=== PATIENT | female | born 1930 | race Caucasian/White ===

== ENCOUNTER 2019-08-05 08:46 | Inpatient (IN) ==
[2019-08-05 08:59] LABS: Appearance,Urine CLEAR (Clear); Bilirubin,Urine Negative (Negative); Blood, Urine Negative (Negative); Color,Urine YELLOW (Yellow); Glucose,Urine (UA) Negative (Negative); Ketones,Urine Negative (Negative); Leukocyte Esterase,Urine 1+ (Negative); Microscopic, Urine URINE MICROSCOPIC (MICROSCOPIC); Protein,Urine TRACE (Negative); Specific Gravity, Urine 1.015 (1.005-1.030); Urobilinogen,Urine 0.2 EU/dl (0.2)
--- NOTE | 2019-08-05 09:00 | Emergency Department Note ---
ED Disposition Clinical Impression: Delirium due to general medical condition, Acute kidney injury (nontraumatic), Hyperkalemia Altered mental status Qualifiers: Altered mental status type: transient alteration of awareness Qualified Code(s): R40.4 - Transient alteration of awareness Sepsis Qualifiers: Sepsis type: sepsis due to unspecified organism Sepsis acute organ dysfunction status: with acute organ dysfunction Severe sepsis acute organ dysfunction type: acute renal failure Acute renal failure type: unspecified Severe sepsis shock status: without septic shock Qualified Code(s): A41.9 - Sepsis, unspecified organism; R65.20 - Severe sepsis without septic shock; N17.9 - Acute kidney failure, unspecified Pneumonia of both lower lobes Qualifiers: Pneumonia type: due to unspecified organism Qualified Code(s): J18.9 - Pneumonia, unspecified organism Disposition: Admitted As Inpatient Condition on Discharge: Fair Instructions: DI for Altered Mental Status Additional Instructions: Patient was admitted to the floor for IV antibiotics and IV hydration. Referrals: Ehsan Hall MD [Primary Care Provider] - Time of Disposition: 10:53 - Critical Care Critical Care Time: Yes Attestation: On , the high probability of a clinically significant, sudden or life threatening deterioration of the following system(s) required my full and direct attention, intervention and personal management. The time I documented below is in addition to time spent performing reported procedures but includes the following listed in this critical care notation. Total Critical Care Time: 30 Vital system(s) involved:: Circulatory Failure, Metabolic Failure, Respiratory Failure, Renal Failure My critical care processes included: Assessment & monitoring of V/S, Initial and Re-exams, Data Review/Interpretation, Coordinating Care, Medication Orders and management, Documentation Medical Decision Making - Brannon Inquiry Pt receiving controlled substance: No Vital Signs: 08/05/19 08:47 08/05/19 08:53 08/05/19 09:47 Temperature 103.1 F H 99.8 F H Temperature Source Rectal Oral Pulse Rate [Left Radial] 137 H 107 H Respiratory Rate 24 24 Blood Pressure [Right Arm] 178/87 H 121/78 Blood Pressure Mean [Right Arm] 117 92 Blood Pressure Position [Right Arm] Sitting Sitting 02 Sat by Pulse Oximetry 90 L 96 95 Oxygen Delivery Method Room Air Nasal Cannula Nasal Cannula Oxygen Flow Rate (LPM) 2 2 - Lab Data Lab results reviewed: Yes: I reviewed the patient's lab results. Lab Results 08/05/19 08:48: Influenza Type A Ag Negative, Influenza Type B Ag Negative 08/05/19 08:49: WBC 15.3 H, RBC 2.89 L, Hgb 10.3 L, Hct 33.4 L, MCV 115.8 H, MCH 35.6 H, MCHC 30.8 L, RDW 14.1, Plt Count 209, MPV 9.1, Neut % (Auto) 78.0, Lymph % (Auto) 18.1, [place] % (Auto) 2.8, Eos % (Auto) 0.7, Baso % (Auto) 0.4, Neut # (Auto) 12.0 H, Lymph # (Auto) 2.8, [place] # (Auto) 0.4, Eos # (Auto) 0.1, Baso # (Auto) 0.1, Total Counted 100, Neutrophils % (Manual) 77 H, Band Neutrophils % 3.0, Lymphocytes % (Manual) 19, Monocytes % (Manual) 1 L, Platelet Estimate Normal, Poikilocytosis 1+, Anisocytosis 1+, Macrocytosis 1+, Acanthocytes (Spur) 1+ 08/05/19 08:49: Sodium 136, Potassium 6.0 H, Chloride 107, Carbon Dioxide 18 L, Anion Gap 17.0 H, BUN 56 H, Creatinine 4.10 H, Estimated Creat Clear 10, Estimated GFR 10 L*, Est GFR ( Amer) 12 L*, Glucose 105 H, Calcium 10.0, Total Bilirubin 0.4, AST 36, ALT 12, Alkaline Phosphatase 59, Total Protein 7.0, Albumin 3.8, Globulin 3.2, Albumin/Globulin Ratio 1.2 08/05/19 08:49: Lactate 1.1 08/05/19 08:55: Specimen Source Right radial, O2 % 2lpm nc, ABG pH 7.39, ABG pCO 2 27.9 L, ABG pO2 77.2 L, ABG HCO3 16.4 L, ABG Total CO2 17.3 L, ABG O2 Saturation 94, ABG Base Excess -8.6 L, Perfecto Test Acceptable 08/05/19 08:56: Urine Color Yellow, Urine Appearance Clear, Urine pH 6.0, Ur Specific [place] 1.015, Urine Protein Trace, Urine Glucose (UA) Negative, Urine Ketones Negative, Urine Blood Negative, Urine Nitrate Negative, Urine Bilirubin Negative, Urine Urobilinogen 0.2, Ur Leukocyte Esterase 1+ A, Urine RBC None, Urine WBC 20-50, Ur Squamous Epith Cells 5-10, Urine Bacteria 2+ 08/05/19 10:00: Sodium 137, Potassium 5.8 H, Chloride 109 H, Carbon Dioxide 18 L , Anion Gap 15.8 H, BUN 53 H, Creatinine 3.70 H, Estimated Creat Clear 12, Estimated GFR 12 L*, Est GFR ( Amer) 14 L*, Glucose 95, Calcium 9.0 Result diagrams: 08/05/19 08:49 08/05/19 10:00 Orders (Tests/Meds): ED MEDICATIONS Generic Name Dose Route Start Last Admin Trade Name Freq PRN Reason Stop Dose Admin Sodium Chloride 1,040 mls @ 999 mls/hr 08/05/19 10:15 Sod Chlor 0.9% 1000ml Bag IV 08/05/19 11:17 .Q1H3M PATIENCE Discontinued Medications Generic Name Dose Route Start Last Admin Trade Name Freq PRN Reason Stop Dose Admin Acetaminophen 650 mg 08/05/19 08:54 08/05/19 08:56 Acetaminophen 650mg Suppository RC 08/05/19 08:55 650 mg ONCE ONE Administration Sodium Chloride 1,000 mls @ 999 mls/hr 08/05/19 09:00 08/05/19 08:56 Sod Chlor 0.9% 1000ml Bag IV 08/05/19 10:00 999 mls/hr .Q1H1M PATIENCE Administration Ceftriaxone Sodium 1 gm/ 50 mls @ 100 mls/hr 08/05/19 09:53 08/05/19 10:04 Sodium Chloride IV 08/05/19 10:22 100 mls/hr ONCE STA Administration Protocol Ibuprofen 400 mg 08/05/19 08:57 Motrin 100mg/5ml Suspension PO 08/05/19 08:58 ONCE ONE ORDERS Category Date Time Status Blood Culture Stat Micro 08/05/19 08:56 Received Urine Culture Stat Micro 08/05/19 08:56 Received - Radiology Data #1 Image(s): Chest Image Reviewed: Yes I reviewed the patient's radiology image, Yes I have reviewed radiologist's interpretation Bilateral lower lung infiltrate suggestive of possible pneumonia. FINDINGS: Normal heart size Surgical clips are present in the right perihilar region. There is consolidation present in both lower lobes right more extensive than left. There are surgical clips in the right axilla. There is an old left 5th rib fracture. IMPRESSION: Bilateral lower lobe pneumonia Dictated by: Perfecto Monaco MD 08/05/2019 10:12 Electronically signed by Perfecto Monaco MD in [place] 08/05/2019 10:12 - CT Data CT Scan: Abdomen Time Received: 10:[address] Reviewed: Yes: I have reviewed the patient's CT results Findings Narrative: CT of the abdomen pelvis FINDINGS: LOWER THORAX: There is pneumonia present in the right lower lobe and in the left lung base. There is dense coronary artery calcification ABDOMEN & PELVIS: The liver, spleen, gallbladder, pancreas, adrenal glands, and kidneys have an unremarkable appearance. There is a small duodenal diverticulum. No intestinal obstruction or free air. Unremarkable appendix. Sigmoid diverticulosis without diverticulitis. Vela catheter is present. Nonspecific bowel gas pattern. There are few fluid-filled loops of small bowel which are nonspecific and nondilated. Hyperdensity is present within the appendix and could be related to recent in gesture in of medication or contrast. Cannot exclude the possibility of an appendicoliths. There is no evidence of appendicitis. There are degenerative changes in the lumbar spine. There is 50 percent anterior wedge compression change of L1 which appears old. IMPRESSION: 1. Bilateral lower lobe pneumonia right more extensive than left. 2. Nonspecific bowel gas pattern with nondistended scattered fluid-filled loops of small bowel which could be seen with enteritis. Dictated by: Perfecto Monaco MD 08/05/2019 10:11 Electronically signed by Perfecto Monaco MD in [place] 08/05/2019 10:11 CT of the head reports: FINDINGS: No midline shift, mass effect, intracranial hemorr There is generalized atrophy with hypoattenuation of the periventricular white matter consistent with microangiopathic changes.. There are encephalomalacia changes in the left cerebellar hemisphere laterally anny, hydrocephalus, or extra-axial fluid collection is evident. The calvarium has an unremarkable appearance. No mastoid effusion. There is moderate mucosal thickening of the maxillary sinuses with an air-fluid level in the right maxillary sinus. Near complete opacified sphenoid sinus on the right with an air-fluid level. Ethmoid sinus mucosal thickening also noted. IMPRESSION: 1. No acute intracranial findings. 2. Sinusitis Dictated by: Perfecto Monaco MD 08/05/2019 10:05 Electronically signed by Perfecto Monaco MD in [place] 08/05/2019 10:05 - ECG Data Tracing #1 EKG shows sinus tachycardia with a heart rate of 105 bpm, normal P waves, normal MN interval, incomplete LBBB pattern with boderline wide QRS complex, normal axis, nonspecific ST-T changes. - Physician Consults Physician Consulted: Dr. Baron Time: 10:40 Reason -: Admission Comment/Response: Discussed with Dr. Baron, regarding the patient and planned to get the patient admitted to the floor. - Reevaluation(s) Time: 10:30 Reevaluation #1: Patient has been [facility] I discussed the lab findings and the x-ray findings with the daughter. Advised her that the patient seems to have pneumonia along with acute kidney injury. The patient needs to be admitted to the hospital. The daughter states that the patient is DNR in CODE STATUS. She would prefer if the patient would stay in our hospital. Plan to discuss the case with the primary care provider regarding admission to our hospital. Altered Mental Status HPI - General Chief Complaint: Altered Mental Status Stated Complaint: AMS Time Seen by Provider: 08/05/19 08:47 Mode of Arrival: EMS Limitations: No Limitations Description of Symptoms (Recalled from ER Triage Doc. by RN): TO ED PER [facility] WITH URI X SEVERAL DAYS, THIS AM STARTED WITH CONFUSION AND MOANING. PT ALERT, DISORENTED TO TIME. - History of Present Illness HPI narrative: 89-year-old female was brought in by the EMS for being confused at home this morning. According to the daughter she was having some upper respiratory tract infection for almost a week or so. She had been to her primary care provider for the same. The symptoms were not changing much but she seemed to be more c onfused today. The daughter also mentions that at times she is confused when she wakes up in the morning but today she seemed to be worse than any other time. The daughter is not sure if she had a fever but she felt warm. No history of nausea or vomiting. FSBS by EMS= 127 MD complaint: altered mental status, confusion Timing confirmed by: family member Severity: moderate Associated symptoms: fever - Related Data Allergies Allergy/AdvReac Type Severity Reaction Status Date / Time No Known Allergies Allergy Verified 08/05/19 10:03 [facility] History - Hepatitis A Screen Drug use history?: No High risk sexual behaviors?: No History of sexually transmitted infection?: No Currently employed?: No Childcare worker?: No Do you have indoor plumbing?: Yes Do you have electricity?: Yes Attestation statement:: This patient has been screened for Hepatitis A risk factors. I have reviewed the patient's past medical history: Yes - Social History Alcohol Intake: never Occupational Status: other ROS Obtained: Yes unobtainable due to mental status, Yes unobtainable due to mental condition Physical Exam - General General appearance: alert, in no apparent distress, other (Confused. 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 Denies having any pain. High fever with temp 103.1 rectally.) - Head Head exam: atraumatic, normocephalic - Eye Eye exam: Present: normal appearance, PERRL, EOMI - ENT ENT exam: Present: normal exam, normal oropharynx, mucous membranes moist, normal external ear exam - Neck Neck exam: Present: normal inspection, full ROM, trachea midline - Chest Chest inspection: Present: normal inspection, symmetric chest wall rise. Absent: tenderness - Respiratory Respiratory exam: Present: other (decreased breath sounds bilaterally.). Absent: respiratory distress - Cardiovascular Cardiovascular exam: Present: normal rhythm, tachycardia. Absent: JVD - Abdominal Exam Abdominal exam: Present: soft, tenderness (mild tenderness on the lower abdomen and the periumbilical area.), normal bowel sounds. Absent: distention, guarding - Extremities Exam Extremities exam: Present: normal inspection, full ROM, normal capillary refill - Back Exam Back exam: Present: normal inspection, full ROM. Absent: tenderness - Neurological Exam Neurological exam: Present: alert, oriented X3, CN II-XII intact - Psychiatric Psychiatric exam: Present: normal affect, normal mood - Skin Skin exam: Present: warm, dry, intact, normal color
[2019-08-05 09:03] LABS: Basophils # 0.1 K/mm3 (0-0.2); Basophils % 0.4 % (0.1-2.0); Eosinophils # 0.1 K/mm3 (0.0-0.4); Eosinophils % 0.7 % (0.1-12.0); Hematocrit 33.4 % (37.0-47.0); Hemoglobin 10.3 g/dL (12.2-16.2); Lymphocytes # 2.8 K/mm3 (0.7-4.5); Lymphocytes % 18.1 % (10-50); Mean Corpuscular HGB Conc 30.8 g/dL (31.8-35.4); Mean Corpuscular Volume 115.8 fl (81-99); Mean Platelet Volume 9.1 fl (7.4-10.4); Monocytes # 0.4 K/mm3 (0.1-1.0); Monocytes % 2.8 % (1.7-9.3); Platelet Count 209 K/mm3 (142-424); Red Blood Count 2.89 M/mm3 (4.20-5.40); Red Cell Distribution Width 14.1 % (11.5-17.5); White Blood Count 15.3 K/mm3 (4.8-10.8)
[2019-08-05 09:12] LABS: Albumin Level 3.8 g/dl (3.5-5.0); Albumin/Globulin Ratio 1.2 (1.1-1.8); Bilirubin,Total 0.4 mg/dl (0.2-1.3); Globulin 3.2 g/dL (1.3-3.2)
[2019-08-05 09:16] LABS: Bacteria,Urine 2+ /lpf; WBC,Urine 20-50 #/hpf (0-3)
[2019-08-05 09:23] LABS: ABG Base Excess -8.6 mmol/L (-2.4-2.3); ABG HCO3 16.4 mmhg (22.0-26.0); ABG Oxygen Saturation 94 % (90-100); ABG PCO2 27.9 mmhg (35.0-45.0); ABG PH 7.39 mmol/L (7.35-7.45); ABG PO2 77.2 mmhg (80-100); ABG TCO2 17.3 mmhg (23-27)
[2019-08-05 09:24] LABS: Anisocytosis 1+; Lymphocytes % 19 % (10-50); Macrocytosis 1+; Monocytes % 1 % (2-9); Neutrophils % 77 % (42-76); Total Cells Counted 100
[2019-08-05 09:25] LABS: Allen's Test Acceptable; Oxygen 2lpm nc %
[2019-08-05 10:16] LABS: Anion Gap 15.8 mEq/L (5-15)
--- NOTE | 2019-08-05 12:58 | Pharmacy Consult Notes ---
[facility] Pharmacy VTE Monitoring - Patient Demographics Admission date: 08/05/19 Report Date: 08/05/19 Time: 12:57 Allergies/Adverse Reactions: Patient Allergies No Known Allergies Allergy (Verified 08/05/19 10:03) Height: 1.6 m Weight: 60.895 kg Patient Problems: Current Active Problems Altered mental status (Acute) Sepsis (Acute) Delirium due to general medical condition (Acute) Pneumonia of both lower lobes (Acute) Acute kidney injury (nontraumatic) (Acute) Hyperkalemia (Acute) - VTE Risk Labs: VTE Related Lab Results Hgb 10.3 g/dL (12.2-16.2) L 08/05/19 08:49 Hct 33.4 % (37.0-47.0) L 08/05/19 08:49 Plt Count 209 K/mm3 (142-424) 08/05/19 08:49 BUN 53 mg/dl (7-17) H 08/05/19 10:00 Creatinine 3.70 mg/dl (0.52-1.04) H 08/05/19 10:00 Estimated Creat Clear 12 mL/min (50-200) 08/05/19 10:00 VTE Score: 6 VTE Risk Level: Moderate Risk - Prophylaxis VTE Prophylaxis Ordered?: Yes Types of VTE Prophylaxis: TEDS Knee High Location of Applied Device: Bilateral Lower Extremeties
--- NOTE | 2019-08-05 14:57 | History & Physical Report ---
*Admission Date: 08/05/19 *Chief complaint: weakness *History of present illness: Ms. Monroe is an 89-year-old white female survivor of uterine cancer, lung cancer, and breast cancer. She has a history of type 2 diabetes mellitus, hypertension, hyperlipidemia. She has been seen in the office twice recently with respiratory symptoms and was initially treated with Omnicef followed by a course of Zithromax. Despite this she has persisted with congestion, cough, and progressive weakness. She has not been eating or drinking well at home. Because of her progressive symptoms she presented to the emergency room today. She was worked up with findings of bilateral lower lobe pneumonia, urinary tract infection, and acute on chronic renal failure with an elevated white count meeting criteria for severe sepsis. She received an IV fluid bolus along with the initial dose of IV antibiotics in the emergency room and has now been admitted for further evaluation and treatment. [facility] History Medical History: Reports:: Cancer (breast, lung, gynecological cancers), Diab etes Mellitus Type 2, Hypertension, Renal Insufficiency Denies:: Diabetes Mellitus Type 1 *Have you ever received a pneumonia vaccine?: Yes *Have you received a flu vaccine this season?: Yes Other Medical History: Reports: Arthritis, Cataracts Laterality Cases: Right: Breast Biopsy, Mastectomy Other Surgeries: Yes: Colonoscopy, EGD, Hysterectomy-Total, Skin Cancer Excision - *Social History Smoking Status: Never smoker Alcohol Intake: never *Occupational Status:: retired Housing: apartment Household Members: children *Travel in the last 8 weeks: None Family Hx:: Cancer, Diabetes, Other Review of Systems - Constitutional Reports malaise, Reports weakness, Reports other (Decreased appetite) - Eyes Denies change in vision - ENT Reports poor balance, Reports dry mouth, Reports other (Hearing loss) - *Cardiovascular Denies chest pain, Denies shortness of breath, Denies foot swelling - *Respiratory Reports chest congestion - *Gastrointestinal Denies abdominal pain, Denies constipation, Denies loose stools, Denies nausea, Denies vomiting - *Genitourinary Denies difficulty urinating - *Musculoskeletal Reports abnormal walking, Reports muscle weakness - Integumentary/Breasts Denies change in skin color, Denies sores - *Neurologic Reports abnormal hearing, Reports unsteadiness - Psychiatric Denies behavioral changes, Denies confusion - Endocrine Denies excessive sweating, Denies rapid, pounding, or irregular heartbeat - Hematologic/Lymphatic Denies easy bleeding Meds Home Medications Medication Instructions Recorded Confirmed Type Fenofibrate 160 mg PO DAILY 08/05/19 08/05/19 History Ferrous Sulfate 325 mg PO DAILY 08/05/19 08/05/19 History Gabapentin [Gabapentin 300mg Cap] 300 mg PO BID 08/05/19 08/05/19 History Losartan Potassium 100 mg PO DAILY 08/05/19 08/05/19 History Metformin HCl 500 mg PO BID 08/05/19 08/05/19 History Metoprolol Succinate 50 mg PO DAILY 08/05/19 08/05/19 History Mv-Min/Iron/Folic/Calcium/Vitk 1 each PO DAILY 08/05/19 08/05/19 History [Women's Multivitamin Tablet] Omeprazole 40 mg PO DAILY 08/05/19 08/05/19 History Pravastatin Sodium [Pravachol 40mg 40 mg PO HS 08/05/19 08/05/19 History Tablet] Triamterene/Hydrochlorothiazid 1 tab PO DAILY 08/05/19 08/05/19 History [Dyazide 37.5/25mg capsule] Vitamin B Complex [B-50 Complex] 1 each PO DAILY 08/05/19 08/05/19 History Allergies Allergy/AdvReac Type Severity Reaction Status Date / Time No Known Allergies Allergy Verified 08/05/19 10:03 Exam Vital signs and Labs for Last 24 Hours: Temp Pulse Resp BP Pulse Ox 97.6 F 96 H 18 129/53 L 96 08/05/19 12:19 08/05/19 12:19 08/05/19 12:19 08/05/19 12:19 08/05/19 12:19 Laboratory Results - last 24 hr 08/05/19 08:48: Influenza Type A Ag Negative, Influenza Type B Ag Negative 08/05/19 08:49: WBC 15.3 H, RBC 2.89 L, Hgb 10.3 L, Hct 33.4 L, MCV 115.8 H, MCH 35.6 H, MCHC 30.8 L, RDW 14.1, Plt Count 209, MPV 9.1, Neut % (Auto) 78.0, Lymph % (Auto) 18.1, [place] % (Auto) 2.8, Eos % (Auto) 0.7, Baso % (Auto) 0.4, Neut # (Auto) 12.0 H, Lymph # (Auto) 2.8, [place] # (Auto) 0.4, Eos # (Auto) 0.1, Baso # (Auto) 0.1, Total Counted 100, Neutrophils % (Manual) 77 H, Band Neutrophils % 3.0, Lymphocytes % (Manual) 19, Monocytes % (Manual) 1 L, Platelet Estimate Normal, Poikilocytosis 1+, Anisocytosis 1+, Macrocytosis 1+, Acanthocytes (Spur) 1+ 08/05/19 08:49: Sodium 136, Potassium 6.0 H, Chloride 107, Carbon Dioxide 18 L, Anion Gap 17.0 H, BUN 56 H, Creatinine 4.10 H, Estimated Creat Clear 10, Estimated GFR 10 L*, Est GFR ( Amer) 12 L*, Glucose 105 H, Calcium 10.0, Total Bilirubin 0.4, AST 36, ALT 12, Alkaline Phosphatase 59, Total Protein 7.0, Albumin 3.8, Globulin 3.2, Albumin/Globulin Ratio 1.2 08/05/19 08:49: Lactate 1.1 08/05/19 08:55: Specimen Source Right radial, O2 % 2lpm nc, ABG pH 7.39, ABG pCO2 27.9 L, ABG pO2 77.2 L, ABG HCO3 16.4 L, ABG Total CO2 17.3 L, ABG O2 Saturation 94, ABG Base Excess -8.6 L, Perfecto Test Acceptable 08/05/19 08:56: Urine Color Yellow, Urine Appearance Clear, Urine pH 6.0, Ur Specific [place] 1.015, Urine Protein Trace, Urine Glucose (UA) Negative, Urine Ketones Negative, Urine Blood Negative, Urine Nitrate Negative, Urine Bilirubin Negative, Urine Urobilinogen 0.2, Ur Leukocyte Esterase 1+ A, Urine RBC None, Urine WBC 20-50, Ur Squamous Epith Cells 5-10, Urine Bacteria 2+ 08/05/19 10:00: Sodium 137, Potassium 5.8 H, Chloride 109 H, Carbon Dioxide 18 L , Anion Gap 15.8 H, BUN 53 H, Creatinine 3.70 H, Estimated Creat Clear 12, Estimated GFR 12 L*, Est GFR ( Amer) 14 L*, Glucose 95, Calcium 9.0 08/05/19 12:09: POC Glucose 113 H I & O for Last 24 hours: Intake & Output 08/03/19 08/04/19 08/05/19 08/06/19 11:59 11:59 11:59 11:59 Output Total 650 / 650 Balance -650 / -650 Weight 134 lb 134 lb 4 oz Narrative: She is resting comfortably in bed and is aroused from sleep. She is quite hard of hearing. She is alert and oriented. Color is adequate. No respiratory dist ress. Sclera and conjunctive are clear. Mucous membranes are dry. Neck is supple with no adenopathy or bruits. Chest with coarse breath sounds and bibasilar rales. No wheezes. Heart is regular with a faint grade 1/6 systolic murmur. Abdomen is soft and nondistended. No unusual masses or tenderness. Extremities show no edema. KAITLYNN stockings in place. Assessment and Plan (1) Pneumonia of both lower lobes Current visit: Yes Status: Acute Qualifiers: Pneumonia type: due to unspecified organism Qualified Code(s): J18.9 - Pneumonia, unspecified organism Category: Medical Code(s): J18.9 - Pneumonia, unspecified organism (2) Severe sepsis Current visit: Yes Status: Acute Category: Medical Code(s): A41.9 - Sepsis, unspecified organism; R65.20 - Severe sepsis without septic shock (3) Urinary tract infection Current visit: Yes Status: Acute Category: Medical Code(s): N39.0 - Urinary tract infection, site not specified (4) Acute on chronic renal failure Current visit: Yes Status: Acute Category: Medical Code(s): N17.9 - Acute kidney failure, unspecified; N18.9 - Chronic kidney disease, unspecified (5) Type 2 diabetes mellitus Current visit: Yes Status: Acute Category: Medical Code(s): E11.9 - Type 2 diabetes mellitus without complications (6) Hypertension Current visit: Yes Status: Acute Category: Medical Code(s): I10 - Essential (primary) hypertension (7) Hyperlipidemia Current visit: Yes Status: Acute Category: Medical Code(s): E78.5 - Hyperlipidemia, unspecified (8) Presbycusis Current visit: Yes Status: Acute Category: Medical Code(s): H91.10 - Presbycusis, unspecified ear (9) History of uterine cancer Current visit: Yes Status: Acute Category: Medical Code(s): Z85.42 - Personal history of malignant neoplasm of other parts of uterus (10) History of lung cancer Current visit: Yes Status: Acute Category: Medical Code(s): Z85.118 - Personal history of other malignant neoplasm of bronchus and lung (11) History of breast cancer Current visit: Yes Status: Acute Category: Medical Code(s): Z85.3 - Personal history of malignant neoplasm of breast (12) Diabetic neuropathy Current visit: Yes Status: Acute Category: Medical Code(s): E11.40 - Type 2 diabetes mellitus with diabetic neuropathy, unspecified (13) DNR (do not resuscitate) Current visit: Yes Status: Acute Category: Medical Code(s): Z66 - Do not resuscitate - Assessment and plan all Dx Assessment and Plan for all problems:: She is admitted for treatment with IV fluids and IV antibiotics. She received her fluid bolus in the emergency room and has empirically been started on IV Rocephin and Zithromax. She will continue some of her maintenance medications but will hold her diuretics and metformin because of her acute renal insufficiency. She has been placed on a sliding scale insulin for control of her blood sugar. Note her DNR status.
[2019-08-05 16:19] LABS: Anion Gap 15.3 mEq/L (5-15); Calcium 8.1 mg/dl (8.4-10.2)
--- NOTE | 2019-08-05 19:09 | Electrocardiograph Report ---
APPROVED REPORT Exam: Resting ECG HR:105 bpm ECG Measurements Heart Rate 105 AXES OK 154 P 44 QRSd 108 QRS 10 QT 342 T27 QTc 452 <Conclusion> Sinus tachycardia Poor R Wave Progression Abnormal ECG Electronically signed by : Keven Pratt, 08/05/2019 19:08:47
[2019-08-06 07:07] LABS: Basophils # 0.1 K/mm3 (0-0.2); Basophils % 0.3 % (0.1-2.0); Eosinophils # 0.1 K/mm3 (0.0-0.4); Eosinophils % 0.6 % (0.1-12.0); Lymphocytes # 1.8 K/mm3 (0.7-4.5); Lymphocytes % 12.3 % (10-50); Mean Corpuscular HGB Conc 30.7 g/dL (31.8-35.4); Mean Corpuscular Volume 115.2 fl (81-99); Mean Platelet Volume 9.1 fl (7.4-10.4); Monocytes # 0.4 K/mm3 (0.1-1.0); Monocytes % 2.5 % (1.7-9.3); Neutrophils # 12.5 K/mm3 (1.8-7.8); Neutrophils % 84.2 % (37.0-80.0); Platelet Count 152 K/mm3 (142-424); Red Blood Count 2.33 M/mm3 (4.20-5.40); Red Cell Distribution Width 13.9 % (11.5-17.5); White Blood Count 14.8 K/mm3 (4.8-10.8)
[2019-08-06 07:15] LABS: Hematocrit 26.9 % (37.0-47.0); Hemoglobin 8.2 g/dL (12.2-16.2)
--- NOTE | 2019-08-06 09:14 | Progress Note ---
Internal Medicine - PN: Subj *Date: 08/06/19 *Time: 09:12 Interval history: Patient did have some shortness of breath overnight. She had a bowel movement this morning. Exam Vital signs and Labs for Last 24 Hours: Temp Pulse Resp BP Pulse Ox 98.1 F 73 18 135/48 L 93 L 08/06/19 08:00 08/06/19 08:00 08/06/19 08:00 08/06/19 08:00 08/06/19 08:00 Laboratory Results - last 24 hr 08/05/19 08:48: Influenza Type A Ag Negative, Influenza Type B Ag Negative 08/05/19 08:49: Total Counted 100, Neutrophils % (Manual) 77 H, Band Neutrophils % 3.0, Lymphocytes % (Manual) 19, Monocytes % (Manual) 1 L, Platelet Estimate Normal, Poikilocytosis 1+, Anisocytosis 1+, Macrocytosis 1+, Acanthocytes (Spur) 1+ 08/05/19 08:49: Sodium 136, Potassium 6.0 H, Chloride 107, Carbon Dioxide 18 L, Anion Gap 17.0 H, BUN 56 H, Creatinine 4.10 H, Estimated Creat Clear 10, Estimated GFR 10 L*, Est GFR ( Amer) 12 L*, Glucose 105 H, Calcium 10.0, Total Bilirubin 0.4, AST 36, ALT 12, Alkaline Phosphatase 59, Total Protein 7.0, Albumin 3.8, Globulin 3.2, Albumin/Globulin Ratio 1.2 08/05/19 08:49: Lactate 1.1 08/05/19 08:55: Specimen Source Right radial, O2 % 2lpm nc, ABG pH 7.39, ABG pCO2 27.9 L, ABG pO2 77.2 L, ABG HCO3 16.4 L, ABG Total CO2 17.3 L, ABG O2 Saturation 94, ABG Base Excess -8.6 L, Perfecto Test Acceptable 08/05/19 08:56: Urine Color Yellow, Urine Appearance Clear, Urine pH 6.0, Ur Specific [place] 1.015, Urine Protein Trace, Urine Glucose (UA) Negative, Urine Ketones Negative, Urine Blood Negative, Urine Nitrate Negative, Urine Bilirubin Negative, Urine Urobilinogen 0.2, Ur Leukocyte Esterase 1+ A, Urine RBC None, Urine WBC 20-50, Ur Squamous Epith Cells 5-10, Urine Bacteria 2+ 08/05/19 10:00: Sodium 137, Potassium 5.8 H, Chloride 109 H, Carbon Dioxide 18 L , Anion Gap 15.8 H, BUN 53 H, Creatinine 3.70 H, Estimated Creat Clear 12, Estimated GFR 12 L*, Est GFR ( Amer) 14 L*, Glucose 95, Calcium 9.0 08/05/19 12:09: POC Glucose 113 H 08/05/19 16:00: Sodium 137, Potassium 5.3 H, Chloride 112 H, Carbon Dioxide 15 L , Anion Gap 15.3 H, BUN 45 H, Creatinine 3.30 H, Estimated Creat Clear 12, Estimated GFR 13 L*, Est GFR ( Amer) 16 L*, Glucose 137 H D, Calcium 8.1 L 08/05/19 16:59: POC Glucose 144 H 08/05/19 23:11: POC Glucose 141 H 08/06/19 04:32: POC Glucose 139 H 08/06/19 06:39: WBC 14.8 H, RBC 2.33 L, Hgb 8.2 L D, Hct 26.9 L, MCV 115.2 H, MCH 35.4 H, MCHC 30.7 L, RDW 13.9, Plt Count 152 D, MPV 9.1, Neut % (Auto) 84.2 H, Lymph % (Auto) 12.3, [place] % (Auto) 2.5, Eos % (Auto) 0.6, Baso % (Auto) 0.3, Neut # (Auto) 12.5 H, Lymph # (Auto) 1.8, [place] # (Auto) 0.4, Eos # (Auto) 0.1, Baso # (Auto) 0.1 Vital Signs - 24 hr 08/05/19 09:47 08/05/19 10:48 08/05/19 11:27 Temperature 99.8 F H 99 F Pulse Rate 98 H Pulse Rate [Left Radial] 107 H 102 H Respiratory Rate 24 20 Blood Pressure 125/74 Blood Pressure [Left Arm] Blood Pressure [Right Arm] 121/78 136/73 02 Sat by Pulse Oximetry 95 94 L 08/05/19 12:19 08/05/19 15:54 08/05/19 19:53 Temperature 97.6 F 98.4 F 97.8 F Pulse Rate Pulse Rate [Left Radial] 96 H 80 70 Respiratory Rate 18 18 18 Blood Pressure Blood Pressure [Left Arm] 140/53 L Blood Pressure [Right Arm] 129/53 L 125/54 L 02 Sat by Pulse Oximetry 96 95 97 08/06/19 00:00 08/06/19 04:00 08/06/19 04:15 Temperature 98.1 F 97.7 F Pulse Rate Pulse Rate [Left Radial] 68 66 Respiratory Rate 20 16 Blood Pressure Blood Pressure [Left Arm] 130/46 L 143/53 H Blood Pressure [Right Arm] 02 Sat by Pulse Oximetry 98 100 89 L 08/06/19 08:00 Temperature 98.1 F Pulse Rate Pulse Rate [Left Radial] 73 Respiratory Rate 18 Blood Pressure Blood Pressure [Left Arm] 135/48 L Blood Pressure [Right Arm] 02 Sat by Pulse Oximetry 93 L I & O for Last 24 hours: Intake & Output 08/03/19 08/04/19 08/05/19 08/06/19 23:59 23:59 23:59 23:59 Intake Total 707 / 707 1536 / 1536 Output Total 1250 / 1250 625 / 625 Balance -543 / -543 911 / 911 Weight 134 lb 4 oz 136 lb 7 oz Microbiology Reports for the Last 24 Hours: Microbiology 08/05/19 08:56 Urine,Catheterized Urine Culture - Preliminary Gram Negative Rods - Constitutional no acute distress - *Routine HEENT Exam Head: Present: normocephalic Eye: Present: EOMI, PERRL ENT: Present: mucous membranes moist - *Routine Neck Exam Present: supple. Absent: lymphadenopathy - *Routine Respiratory Exam Present: crackles (bibasilar) - *Routine Cardiovascular Exam Present: RRR - *Routine Abdominal Exam Present: soft, normoactive bowel sounds. Absent: tenderness - *Routine Extremities Exam Absent: cyanosis, clubbing, edema - *Routine Skin Exam Present: warm. Absent: rash - *Routine Neurological Exam Present: alert Assessment and Plan (1) Pneumonia of both lower lobes Current visit: Yes Status: Acute Qualifiers: Pneumonia type: due to unspecified organism Qualified Code(s): J18.9 - Pneumonia, unspecified organism Category: Medical Code(s): J18.9 - Pneumonia, unspecified organism (2) Severe sepsis Current visit: Yes Status: Acute Category: Medical Code(s): A41.9 - Sepsis, unspecified organism; R65.20 - Severe sepsis without septic shock (3) Urinary tract infection Current visit: Yes Status: Acute Category: Medical Code(s): N39.0 - Urinary tract infection, site not specified (4) Acute on chronic renal failure Current visit: Yes Status: Acute Category: Medical Code(s): N17.9 - Acute kidney failure, unspecified; N18.9 - Chronic kidney disease, unspecified (5) Type 2 diabetes mellitus Current visit: Yes Status: Acute Category: Medical Code(s): E11.9 - Type 2 diabetes mellitus without complications (6) Hypertension Current visit: Yes Status: Acute Category: Medical Code(s): I10 - Essential (primary) hypertension (7) Hyperlipidemia Current visit: Yes Status: Acute Category: Medical Code(s): E78.5 - Hyperlipidemia, unspecified (8) Presbycusis Current visit: Yes Status: Acute Category: Medical Code(s): H91.10 - Presbycusis, unspecified ear (9) History of uterine cancer Current visit: Yes Status: Acute Category: Medical Code(s): Z85.42 - Personal history of malignant neoplasm of other parts of uterus (10) History of lung cancer Current visit: Yes Status: Acute Category: Medical Code(s): Z85.118 - Personal history of other malignant neoplasm of bronchus and lung (11) History of breast cancer Current visit: Yes Status: Acute Category: Medical Code(s): Z85.3 - Personal history of malignant neoplasm of breast (12) Diabetic neuropathy Current visit: Yes Status: Acute Category: Medical Code(s): E11.40 - Type 2 diabetes mellitus with diabetic neuropathy, unspecified (13) DNR (do not resuscitate) Current visit: Yes Status: Acute Category: Medical Code(s): Z66 - Do not resuscitate - Assessment and plan all Dx Assessment and Plan for all problems:: Continue current antibiotics, await cultures.
[2019-08-07 06:24] LABS: Basophils # 0.1 K/mm3 (0-0.2); Basophils % 0.6 % (0.1-2.0); Eosinophils # 0.2 K/mm3 (0.0-0.4); Eosinophils % 1.5 % (0.1-12.0); Hematocrit 27.7 % (37.0-47.0); Hemoglobin 8.5 g/dL (12.2-16.2); Lymphocytes # 2.6 K/mm3 (0.7-4.5); Lymphocytes % 18.6 % (10-50); Mean Corpuscular HGB Conc 30.7 g/dL (31.8-35.4); Mean Corpuscular Volume 115.4 fl (81-99); Mean Platelet Volume 8.8 fl (7.4-10.4); Monocytes # 0.5 K/mm3 (0.1-1.0); Monocytes % 3.2 % (1.7-9.3); Neutrophils # 10.6 K/mm3 (1.8-7.8); Platelet Count 146 K/mm3 (142-424); Red Cell Distribution Width 13.9 % (11.5-17.5)
[2019-08-07 06:30] LABS: Anion Gap 14.2 mEq/L (5-15)
--- NOTE | 2019-08-07 08:23 | Progress Note ---
<Jaz Sams - Last Filed: 08/07/19 08:19> Internal Medicine - PN: Subj *Date: 08/07/19 *Time: 08:19 Interval history: Patient states she did sleep last night. She remains very tired, weak, and short of breath with any exertion. She denies chest pain. She has been out of bed and sitting in a chair. She is not eating very well. Her bowels did move yesterday. BMP shows sodium of 140 and potassium of 5.2, BUN 35 creatinine of 2.7 white blood cell count was 14,000 this morning with a hemoglobin of 8.5 hematocrit of 27.7 Exam Vital signs and Labs for Last 24 Hours: Temp Pulse Resp BP Pulse Ox 98.2 F 82 22 159/81 H 91 L 08/07/19 04:00 08/07/19 04:00 08/07/19 04:00 08/07/19 04:00 08/07/19 04:00 Laboratory Results - last 24 hr 08/06/19 11:46: POC Glucose 149 H 08/06/19 16:45: POC Glucose 153 H 08/06/19 22:47: POC Glucose 97 08/07/19 05:12: POC Glucose 97 08/07/19 05:58: WBC 14.0 H, RBC 2.40 L, Hgb 8.5 L, Hct 27.7 L, MCV 115.4 H, MCH 35.4 H, MCHC 30.7 L, RDW 13.9, Plt Count 146, MPV 8.8, Neut % (Auto) 76.0, Lymph % (Auto) 18.6, [place] % (Auto) 3.2, Eos % (Auto) 1.5, Baso % (Auto) 0.6, Neut # (Auto) 10.6 H, Lymph # (Auto) 2.6, [place] # (Auto) 0.5, Eos # (Auto) 0.2, Baso # (Auto) 0.1 08/07/19 05:58: Sodium 140, Potassium 5.2 H, Chloride 113 H, Carbon Dioxide 18 L , Anion Gap 14.2, BUN 35 H, Creatinine 2.70 H, Estimated Creat Clear 15, Estimated GFR 17 L*, Est GFR ( Amer) 20 L D, Glucose 93 I & O for Last 24 hours: Intake & Output 08/04/19 08/05/19 08/06/19 08/07/19 11:59 11:59 11:59 11:59 Intake Total 2243 / 2243 2424 / 2424 Output Total 1875 / 1875 2074 / 2074 Balance 368 / 368 349 / 349 Weight 134 lb 136 lb 7 oz 139 lb 5 oz Microbiology Reports for the Last 24 Hours: Microbiology 08/06/19 09:13 Sputum - Expectorated Sputum Gram Stain - Final 08/06/19 09:13 Sputum - Expectorated Sputum Sputum Culture - Preliminary Gram Negative Rods 08/05/19 08:56 Urine,Catheterized Urine Culture - Final Escherichia coli - Constitutional no acute distress, thin Comments: Sitting up in recliner at bedside. Some dyspnea with talking. Very hard of hearing. Daughter is at bedside. Patient denies chest pain. States she continues to be short of breath. - *Routine Respiratory Exam Comments: Soft end expiratory wheeze. Diminished breath sounds posteriorly. - *Routine Cardiovascular Exam Present: RRR - *Routine Abdominal Exam Present: soft, normoactive bowel sounds. Absent: tenderness, distended - *Routine Extremities Exam Present: KA[place]NN stockings. Absent: edema, calf tenderness - *Routine Neurological Exam Present: alert, oriented X3. Absent: hearing grossly intact Assessment and Plan (1) Pneumonia of both lower lobes Current visit: Yes Status: Acute Qualifiers: Pneumonia type: due to unspecified organism Qualified Code(s): J18.9 - Pneumonia, unspecified organism Category: Medical Code(s): J18.9 - Pneumonia, unspecified organism (2) Severe sepsis Current visit: Yes Status: Acute Category: Medical Code(s): A41.9 - Sepsis, unspecified organism; R65.20 - Severe sepsis without septic shock (3) Urinary tract infection Current visit: Yes Status: Acute Category: Medical Code(s): N39.0 - Urinary tract infection, site not specified (4) Acute on chronic renal failure Current visit: Yes Status: Acute Category: Medical Code(s): N17.9 - Acute kidney failure, unspecified; N18.9 - Chronic kidney disease, unspecified (5) Type 2 diabetes mellitus Current visit: Yes Status: Acute Category: Medical Code(s): E11.9 - Type 2 diabetes mellitus without complications (6) Hypertension Current visit: Yes Status: Acute Category: Medical Code(s): I10 - Essential (primary) hypertension (7) Hyperlipidemia Current visit: Yes Status: Acute Category: Medical Code(s): E78.5 - Hyperlipidemia, unspecified (8) Presbycusis Current visit: Yes Status: Acute Category: Medical Code(s): H91.10 - Presbycusis, unspecified ear (9) History of uterine cancer Current visit: Yes Status: Acute Category: Medical Code(s): Z85.42 - Personal history of malignant neoplasm of other parts of uterus (10) History of lung cancer Current visit: Yes Status: Acute Category: Medical Code(s): Z85.118 - Personal history of other malignant neoplasm of bronchus and lung (11) History of breast cancer Current visit: Yes Status: Acute Category: Medical Code(s): Z85.3 - Personal history of malignant neoplasm of breast (12) Diabetic neuropathy Current visit: Yes Status: Acute Category: Medical Code(s): E11.40 - Type 2 diabetes mellitus with diabetic neuropathy, unspecified (13) DNR (do not resuscitate) Current visit: Yes Status: Acute Category: Medical Code(s): Z66 - Do not resuscitate - Assessment and plan all Dx Assessment and Plan for all problems:: We will add duo nebs. Continue with antibiotics. Remains on IV fluids at 75/h. <Ehsan Hall - Last Filed: 08/07/19 08:58> Internal Medicine - PN: Subj *Date: 08/07/19 *Time: 08:55 Exam Vital signs and Labs for Last 24 Hours: Temp Pulse Resp BP Pulse Ox 98.2 F 82 22 159/81 H 91 L 08/07/19 04:00 08/07/19 04:00 08/07/19 04:00 08/07/19 04:00 08/07/19 04:00 Laboratory Results - last 24 hr 08/06/19 11:46: POC Glucose 149 H 08/06/19 16:45: POC Glucose 153 H 08/06/19 22:47: POC Glucose 97 08/07/19 05:12: POC Glucose 97 08/07/19 05:58: WBC 14.0 H, RBC 2.40 L, Hgb 8.5 L, Hct 27.7 L, MCV 115.4 H, MCH 35.4 H, MCHC 30.7 L, RDW 13.9, Plt Count 146, MPV 8.8, Neut % (Auto) 76.0, Lymph % (Auto) 18.6, [place] % (Auto) 3.2, Eos % (Auto) 1.5, Baso % (Auto) 0.6, Neut # (Auto) 10.6 H, Lymph # (Auto) 2.6, [place] # (Auto) 0.5, Eos # (Auto) 0.2, Baso # (Auto) 0.1 08/07/19 05:58: Sodium 140, Potassium 5.2 H, Chloride 113 H, Carbon Dioxide 18 L , Anion Gap 14.2, BUN 35 H, Creatinine 2.70 H, Estimated Creat Clear 15, Estimated GFR 17 L*, Est GFR ( Amer) 20 L D, Glucose 93 I & O for Last 24 hours: Intake & Output 08/04/19 08/05/19 08/06/19 08/07/19 23:59 23:59 23:59 23:59 Intake Total 707 / 707 1796 / 1796 2164 / 2164 Output Total 1250 / 1250 1575 / 1575 1125 / 1125 Balance -543 / -543 221 / 221 1039 / 1039 Weight 134 lb 4 oz 136 lb 7 oz 139 lb 5 oz Microbiology Reports for the Last 24 Hours: Microbiology 08/06/19 09:13 Sputum - Expectorated Sputum Gram Stain - Final 08/06/19 09:13 Sputum - Expectorated Sputum Sputum Culture - Preliminary Gram Negative Rods 08/05/19 08:56 Urine,Catheterized Urine Culture - Final Escherichia coli Assessment and Plan (1) Pneumonia of both lower lobes Current visit: Yes Status: Acute Qualifiers: Pneumonia type: due to unspecified organism Qualified Code(s): J18.9 - Pneumonia, unspecified organism Category: Medical Code(s): J18.9 - Pneumonia, unspecified organism (2) Severe sepsis Current visit: Yes Status: Acute Category: Medical Code(s): A41.9 - Sepsis, unspecified organism; R65.20 - Severe sepsis without septic shock (3) Urinary tract infection Current visit: Yes Status: Acute Category: Medical Code(s): N39.0 - Urinary tract infection, site not specified (4) Acute on chronic renal failure Current visit: Yes Status: Acute Category: Medical Code(s): N17.9 - Acute kidney failure, unspecified; N18.9 - Chronic kidney disease, unspecified (5) Type 2 diabetes mellitus Current visit: Yes Status: Acute Category: Medical Code(s): E11.9 - Type 2 diabetes mellitus without complications (6) Hypertension Current visit: Yes Status: Acute Category: Medical Code(s): I10 - Essential (primary) hypertension (7) Hyperlipidemia Current visit: Yes Status: Acute Category: Medical Code(s): E78.5 - Hyperlipidemia, unspecified (8) Presbycusis Current visit: Yes Status: Acute Category: Medical Code(s): H91.10 - Presbycusis, unspecified ear (9) History of uterine cancer Current visit: Yes Status: Acute Category: Medical Code(s): Z85.42 - Personal history of malignant neoplasm of other parts of uterus (10) History of lung cancer Current visit: Yes Status: Acute Category: Medical Code(s): Z85.118 - Personal history of other malignant neoplasm of bronchus and lung (11) History of breast cancer Current visit: Yes Status: Acute Category: Medical Code(s): Z85.3 - Personal history of malignant neoplasm of breast (12) Diabetic neuropathy Current visit: Yes Status: Acute Category: Medical Code(s): E11.40 - Type 2 diabetes mellitus with diabetic neuropathy, unspecified (13) DNR (do not resuscitate) Current visit: Yes Status: Acute Category: Medical Code(s): Z66 - Do not resuscitate (14) Anemia Current visit: Yes Status: Acute Category: Medical Code(s): D64.9 - Anemia, unspecified (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 coli UTI Current visit: Yes Status: Acute Category: Medical Code(s): N39.0 - Urinary tract infection, site not specified; B96.20 - Unspecified Escherichia coli [E. coli] as the cause of diseases classified elsewhere - Assessment and plan all Dx Assessment and Plan for all problems:: Saw patient, agree with above note. OK to change to Invanz today, await sputum culture.
--- NOTE | 2019-08-07 18:58 | Electrocardiograph Report ---
APPROVED REPORT Exam: Resting ECG HR:67 bpm ECG Measurements Heart Rate 67 AXES IL 178 P 43 QRSd 116 QRS 16 QT 432 T23 QTc 456 <Conclusion> Normal sinus rhythm Low voltage QRS Cannot rule out Anteroseptal infarct, age undetermined Abnormal ECG Electronically signed by : Keven Pratt, 08/07/2019 18:58:27
--- NOTE | 2019-08-08 09:00 | Progress Note ---
Internal Medicine - PN: Subj *Date: 08/08/19 *Time: 08:58 Interval history: Patient with no new complaints today. Exam Vital signs and Labs for Last 24 Hours: Temp Pulse Resp BP Pulse Ox 98.0 F 82 18 192/87 H 93 L 08/08/19 08:00 08/08/19 08:00 08/08/19 08:00 08/08/19 08:00 08/08/19 08:00 Laboratory Results - last 24 hr 08/07/19 05:58: Calcium 9.0 D 08/07/19 10:56: POC Glucose 99 08/07/19 16:27: POC Glucose 121 H 08/07/19 23:01: POC Glucose 106 08/08/19 05:22: POC Glucose 94 I & O for Last 24 hours: Intake & Output 08/05/19 08/06/19 08/07/19 08/08/19 23:59 23:59 23:59 23:59 Intake Total 707 / 707 1796 / 1796 3982 / 3982 120 / 120 Output Total 1250 / 1250 1575 / 1575 1125 / 1125 900 / 900 Balance -543 / -543 221 / 221 2857 / 2857 -780 / -780 Weight 134 lb 4 oz 136 lb 7 oz 138 lb 14.259 oz 141 lb 4 oz Microbiology Reports for the Last 24 Hours: Microbiology 08/06/19 09:13 Sputum - Expectorated Sputum Gram Stain - Final 08/06/19 09:13 Sputum - Expectorated Sputum Sputum Culture - Final Escherichia coli 08/05/19 08:56 Blood Blood Culture - Preliminary NO GROWTH AFTER 48 HOURS 08/05/19 08:56 Blood Blood Culture - Preliminary NO GROWTH AFTER 48 HOURS 08/05/19 08:56 Urine,Catheterized Urine Culture - Final Escherichia coli - Constitutional no acute distress - *Routine HEENT Exam Head: Present: normocephalic Eye: Present: EOMI, PERRL ENT: Present: mucous membranes moist - *Routine Neck Exam Present: supple. Absent: lymphadenopathy - *Routine Respiratory Exam Present: diminished air movement (in the bases). Absent: wheezes Comments: overall more clear today - *Routine Cardiovascular Exam Present: RRR - *Routine Abdominal Exam Present: soft, normoactive bowel sounds. Absent: tenderness - *Routine Extremities Exam Absent: cyanosis, clubbing, edema - *Routine Skin Exam Present: warm. Absent: rash - *Routine Neurological Exam Present: alert Assessment and Plan (1) Pneumonia of both lower lobes Current visit: Yes Status: Acute Qualifiers: Pneumonia type: due to unspecified organism Qualified Code(s): J18.9 - Pneumonia, unspecified organism Category: Medical Code(s): J18.9 - Pneumonia, unspecified organism (2) Severe sepsis Current visit: Yes Status: Acute Category: Medical Code(s): A41.9 - Sepsis, unspecified organism; R65.20 - Severe sepsis without septic shock (3) Urinary tract infection Current visit: Yes Status: Acute Category: Medical Code(s): N39.0 - Urinary tract infection, site not specified (4) Acute on chronic renal failure Current visit: Yes Status: Acute Category: Medical Code(s): N17.9 - Acute kidney failure, unspecified; N18.9 - Chronic kidney disease, unspecified (5) Type 2 diabetes mellitus Current visit: Yes Status: Acute Category: Medical Code(s): E11.9 - Type 2 diabetes mellitus without complications (6) Hypertension Current visit: Yes Status: Acute Category: Medical Code(s): I10 - Essential (primary) hypertension (7) Hyperlipidemia Current visit: Yes Status: Acute Category: Medical Code(s): E78.5 - Hyperlipidemia, unspecified (8) Presbycusis Current visit: Yes Status: Acute Category: Medical Code(s): H91.10 - Presbycusis, unspecified ear (9) History of uterine cancer Current visit: Yes Status: Acute Category: Medical Code(s): Z85.42 - Personal history of malignant neoplasm of other parts of uterus (10) History of lung cancer Current visit: Yes Status: Acute Category: Medical Code(s): Z85.118 - Personal history of other malignant neoplasm of bronchus and lung (11) History of breast cancer Current visit: Yes Status: Acute Category: Medical Code(s): Z85.3 - Personal history of malignant neoplasm of breast (12) Diabetic neuropathy Current visit: Yes Status: Acute Category: Medical Code(s): E11.40 - Type 2 diabetes mellitus with diabetic neuropathy, unspecified (13) DNR (do not resuscitate) Current visit: Yes Status: Acute Category: Medical Code(s): Z66 - Do not resuscitate (14) Anemia Current visit: Yes Status: Acute Category: Medical Code(s): D64.9 - Anemia, unspecified (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 coli UTI Current visit: Yes Status: Acute Category: Medical Code(s): N39.0 - Urinary tract infection, site not specified; B96.20 - Unspecified Escherichia coli [E. coli] as the cause of diseases classified elsewhere - Assessment and plan all Dx Assessment and Plan for all problems:: Patient is improving. Plan to remove pineda today get OOB to chair
[2019-08-09 06:32] LABS: Basophils # 0.1 K/mm3 (0-0.2); Basophils % 0.8 % (0.1-2.0); Eosinophils # 0.2 K/mm3 (0.0-0.4); Eosinophils % 1.9 % (0.1-12.0); Hematocrit 24.8 % (37.0-47.0); Lymphocytes # 1.9 K/mm3 (0.7-4.5); Lymphocytes % 17.5 % (10-50); Mean Corpuscular HGB Conc 31.4 g/dL (31.8-35.4); Mean Corpuscular Volume 111.1 fl (81-99); Mean Platelet Volume 9.5 fl (7.4-10.4); Monocytes # 0.4 K/mm3 (0.1-1.0); Monocytes % 3.7 % (1.7-9.3); Neutrophils # 8.1 K/mm3 (1.8-7.8); Platelet Count 136 K/mm3 (142-424); Red Blood Count 2.23 M/mm3 (4.20-5.40); White Blood Count 10.7 K/mm3 (4.8-10.8)
[2019-08-09 06:45] LABS: Hemoglobin 7.8 g/dL (12.2-16.2)
[2019-08-09 06:49] LABS: Calcium 8.7 mg/dl (8.4-10.2)
--- NOTE | 2019-08-09 08:35 | Progress Note ---
<Radha Knutson - Last Filed: 08/09/19 08:33> Internal Medicine - PN: Subj *Date: 08/09/19 *Time: 08:33 Interval history: Patient's family member states she has been up this morning to the bedside commode but is now totally exhausted. She sleeps through the entire exam. She has denied any pain and did eat a small amount of breakfast. Exam Vital signs and Labs for Last 24 Hours: Temp Pulse Resp BP Pulse Ox 98.3 F 86 20 174/72 H 91 L 08/09/19 03:51 08/09/19 06:21 08/09/19 03:51 08/09/19 03:51 08/09/19 06:21 Laboratory Results - last 24 hr 08/08/19 11:30: POC Glucose 111 H 08/08/19 20:30: POC Glucose 130 H 08/09/19 05:04: POC Glucose 108 08/09/19 05:48: WBC 10.7, RBC 2.23 L, Hgb 7.8 L*, Hct 24.8 L, MCV 111.1 H, MCH 34.9 H, MCHC 31.4 L, RDW 14.0, Plt Count 136 L, MPV 9.5, Neut % (Auto) 76.0, Lymph % (Auto) 17.5, [place] % (Auto) 3.7, Eos % (Auto) 1.9, Baso % (Auto) 0.8, Neut # (Auto) 8.1 H, Lymph # (Auto) 1.9, [place] # (Auto) 0.4, Eos # (Auto) 0.2, Baso # (Auto) 0.1 08/09/19 05:48: Sodium 136, Potassium 5.0, Chloride 110 H, Carbon Dioxide 21 L, Anion Gap 10.0, BUN 26 H D, Creatinine 2.30 H, Estimated Creat Clear 18, Estimated GFR 20 L, Est GFR ( Amer) 24 L, Glucose 101 H, Calcium 8.7 I & O for Last 24 hours: Intake & Output 08/06/19 08/07/19 08/08/19 08/09/19 11:59 11:59 11:59 11:59 Intake Total 2243 / 2243 2544 / 2544 1818 / 1818 2745 / 2745 Output Total 1875 / 1875 2075 / 207 1400 / 1400 Balance 368 / 368 469 / 469 418 / 418 2745 / 2745 Weight 136 lb 7 oz 139 lb 5 oz 141 lb 4 oz 144 lb 7 oz Microbiology Reports for the Last 24 Hours: Microbiology 08/06/19 09:13 Sputum - Expectorated Sputum Gram Stain - Final 08/06/19 09:13 Sputum - Expectorated Sputum Sputum Culture - Final Escherichia coli - Constitutional Comments: sleeping - *Routine Respiratory Exam Present: diminished air movement. Absent: rhonchi, wheezes - *Routine Cardiovascular Exam Present: RRR - *Routine Abdominal Exam Present: soft, normoactive bowel sounds. Absent: tenderness - *Routine Extremities Exam Absent: cyanosis, clubbing, edema - *Routine Skin Exam Present: warm. Absent: rash Assessment and Plan (1) Pneumonia of both lower lobes Problem details: D/t e. Coli Current visit: Yes Status: Acute Qualifiers: Pneumonia type: due to unspecified organism Qualified Code(s): J18.9 - Pneumonia, unspecified organism Category: Medical Code(s): J18.9 - Pneumonia, unspecified organism (2) Severe sepsis Current visit: Yes Status: Acute Category: Medical Code(s): A41.9 - Sepsis, unspecified organism; R65.20 - Severe sepsis without septic shock (3) Urinary tract infection Current visit: Yes Status: Acute Category: Medical Code(s): N39.0 - Urinary tract infection, site not specified (4) Acute on chronic renal failure Current visit: Yes Status: Acute Category: Medical Code(s): N17.9 - Acute kidney failure, unspecified; N18.9 - Chronic kidney disease, unspecified (5) Type 2 diabetes mellitus Current visit: Yes Status: Acute Category: Medical Code(s): E11.9 - Type 2 diabetes mellitus without complications (6) Hypertension Current visit: Yes Status: Acute Category: Medical Code(s): I10 - Essential (primary) hypertension (7) Hyperlipidemia Current visit: Yes Status: Acute Category: Medical Code(s): E78.5 - Hyperlipidemia, unspecified (8) Presbycusis Current visit: Yes Status: Acute Category: Medical Code(s): H91.10 - Presb ycusis, unspecified ear (9) History of uterine cancer Current visit: Yes Status: Acute Category: Medical Code(s): Z85.42 - Personal history of malignant neoplasm of other parts of uterus (10) History of lung cancer Current visit: Yes Status: Acute Category: Medical Code(s): Z85.118 - Personal history of other malignant neoplasm of bronchus and lung (11) History of breast cancer Current visit: Yes Status: Acute Category: Medical Code(s): Z85.3 - Personal history of malignant neoplasm of breast (12) Diabetic neuropathy Current visit: Yes Status: Acute Category: Medical Code(s): E11.40 - Type 2 diabetes mellitus with diabetic neuropathy, unspecified (13) DNR (do not resuscitate) Current visit: Yes Status: Acute Category: Medical Code(s): Z66 - Do not resuscitate (14) Anemia Current visit: Yes Status: Acute Category: Medical Code(s): D64.9 - Anemia, unspecified (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 coli UTI Current visit: Yes Status: Acute Category: Medical Code(s): N39.0 - Urinary tract infection, site not specified; B96.20 - Unspecified Escherichia coli [E. coli] as the cause of diseases classified elsewhere - Assessment and plan all Dx Assessment and Plan for all problems:: Urine and sputum cultures are positive for E. coli. We will continue antibiotics. Patient's H&H is low today. Will transfuse with packed red blood cells. She will likely need skilled care for therapy upon discharge. <Ehsan Hall - Last Filed: 08/09/19 08:42> Internal Medicine - PN: Subj *Date: 08/09/19 *Time: 08:41 Exam Vital signs and Labs for Last 24 Hours: Temp Pulse Resp BP Pulse Ox 98.3 F 86 20 174/72 H 91 L 08/09/19 03:51 08/09/19 06:21 08/09/19 03:51 08/09/19 03:51 08/09/19 06:21 Laboratory Results - last 24 hr 08/08/19 11:30: POC Glucose 111 H 08/08/19 20:30: POC Glucose 130 H 08/09/19 05:04: POC Glucose 108 08/09/19 05:48: WBC 10.7, RBC 2.23 L, Hgb 7.8 L*, Hct 24.8 L, MCV 111.1 H, MCH 34.9 H, MCHC 31.4 L, RDW 14.0, Plt Count 136 L, MPV 9.5, Neut % (Auto) 76.0, Lymph % (Auto) 17.5, [place] % (Auto) 3.7, Eos % (Auto) 1.9, Baso % (Auto) 0.8, Neut # (Auto) 8.1 H, Lymph # (Auto) 1.9, [place] # (Auto) 0.4, Eos # (Auto) 0.2, Baso # (Auto) 0.1 08/09/19 05:48: Sodium 136, Potassium 5.0, Chloride 110 H, Carbon Dioxide 21 L, Anion Gap 10.0, BUN 26 H D, Creatinine 2.30 H, Estimated Creat Clear 18, Estimated GFR 20 L, Est GFR ( Amer) 24 L, Glucose 101 H, Calcium 8.7 I & O for Last 24 hours: Intake & Output 08/06/19 08/07/19 08/08/19 08/09/19 23:59 23:59 23:59 23:59 Intake Total 1796 / 1796 3982 / 3982 2044 / 2044 821 / 821 Output Total 1575 / 1575 1125 / 1125 1400 / 1400 Balance 221 / 221 2857 / 2857 644 / 644 821 / 821 Weight 136 lb 7 oz 138 lb 14.259 oz 141 lb 4 oz 144 lb 7 oz Microbiology Reports for the Last 24 Hours: Microbiology 08/06/19 09:13 Sputum - Expectorated Sputum Gram Stain - Final 08/06/19 09:13 Sputum - Expectorated Sputum Sputum Culture - Final Escherichia coli Assessment and Plan (1) Pneumonia of both lower lobes Problem details: D/t e. Coli Current visit: Yes Status: Acute Qualifiers: Pneumonia type: due to unspecified organism Qualified Code(s): J18.9 - Pneumonia, unspecified organism Category: Medical Code(s): J18.9 - Pneumonia, unspecified organism (2) Severe sepsis Current visit: Yes Status: Acute Category: Medical Code(s): A41.9 - Sepsis, unspecified organism; R65.20 - Severe sepsis without septic shock (3) Urinary tract infection Current visit: Yes Status: Acute Category: Medical Code(s): N39.0 - Urinary tract infection, site not specified (4) Acute on chronic renal failure Current visit: Yes Status: Acute Category: Medical Code(s): N17.9 - Acute kidney failure, unspecified; N18.9 - Chronic kidney disease, unspecified (5) Type 2 diabetes mellitus Current visit: Yes Status: Acute Category: Medical Code(s): E11.9 - Type 2 diabetes mellitus without complications (6) Hypertension Current visit: Yes Status: Acute Category: Medical Code(s): I10 - Essential (primary) hypertension (7) Hyperlipidemia Current visit: Yes Status: Acute Category: Medical Code(s): E78.5 - Hyperlipidemia, unspecified (8) Presbycusis Current visit: Yes Status: Acute Category: Medical Code(s): H91.10 - Presbycusis, unspecified ear (9) History of uterine cancer Current visit: Yes Status: Acute Category: Medical Code(s): Z85.42 - Personal history of malignant neoplasm of other parts of uterus (10) History of lung cancer Current visit: Yes Status: Acute Category: Medical Code(s): Z85.118 - Personal history of other malignant neoplasm of bronchus and lung (11) History of breast cancer Current visit: Yes Status: Acute Category: Medical Code(s): Z85.3 - Personal history of malignant neoplasm of breast (12) Diabetic neuropathy Current visit: Yes Status: Acute Category: Medical Code(s): E11.40 - Type 2 diabetes mellitus with diabetic neuropathy, unspecified (13) DNR (do not resuscitate) Current visit: Yes Status: Acute Category: Medical Code(s): Z66 - Do not resuscitate (14) Anemia Current visit: Yes Status: Acute Category: Medical Code(s): D64.9 - Anemia, unspecified (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 coli UTI Current visit: Yes Status: Acute Category: Medical Code(s): N39.0 - Urinary tract infection, site not specified; B96.20 - Unspecified Escherichia coli [E. coli] as the cause of diseases classified elsewhere - Assessment and plan all Dx Assessment and Plan for all problems:: Saw patient, she was awake and alert during exam, she feels tired, no other new complaints. Transfuse 2 units of PRBC's today. Discussed need for post hospital care plan with patient's daughter and care management.
--- NOTE | 2019-08-09 10:19 | Progress Note ---
Internal Medicine - PN: Subj *Date: 08/09/19 *Time: 10:18 Exam Vital signs and Labs for Last 24 Hours: Temp Pulse Resp BP Pulse Ox 98.3 F 87 16 176/87 H 90 L 08/09/19 08:00 08/09/19 08:00 08/09/19 08:00 08/09/19 08:00 08/09/19 08:00 Laboratory Results - last 24 hr 08/08/19 11:30: POC Glucose 111 H 08/08/19 20:30: POC Glucose 130 H 08/09/19 05:04: POC Glucose 108 08/09/19 05:48: WBC 10.7, RBC 2.23 L, Hgb 7.8 L*, Hct 24.8 L, MCV 111.1 H, MCH 34.9 H, MCHC 31.4 L, RDW 14.0, Plt Count 136 L, MPV 9.5, Neut % (Auto) 76.0, Lymph % (Auto) 17.5, [place] % (Auto) 3.7, Eos % (Auto) 1.9, Baso % (Auto) 0.8, Neut # (Auto) 8.1 H, Lymph # (Auto) 1.9, [place] # (Auto) 0.4, Eos # (Auto) 0.2, Baso # (Auto) 0.1 08/09/19 05:48: Sodium 136, Potassium 5.0, Chloride 110 H, Carbon Dioxide 21 L, Anion Gap 10.0, BUN 26 H D, Creatinine 2.30 H, Estimated Creat Clear 18, Estimated GFR 20 L, Est GFR ( Amer) 24 L, Glucose 101 H, Calcium 8.7 08/09/19 09:45: Crossmatch (AHG) See Detail I & O for Last 24 hours: Intake & Output 08/06/19 08/07/19 08/08/19 08/09/19 23:59 23:59 23:59 23:59 Intake Total 1796 / 1796 3982 / 3982 2044 / 2044 1061 / 1061 Output Total 1575 / 1575 1125 / 1125 1400 / 1400 Balance 221 / 221 2857 / 2857 644 / 644 1061 / 1061 Weight 61.887 kg 63 kg 64.07 kg 65.516 kg Microbiology Reports for the Last 24 Hours: Microbiology 08/06/19 09:13 Sputum - Expectorated Sputum Gram Stain - Final 08/06/19 09:13 Sputum - Expectorated Sputum Sputum Culture - Final Escherichia coli Assessment and Plan (1) Pneumonia of both lower lobes Problem details: D/t e. Coli Current visit: Yes Status: Acute Qualifiers: Pneumonia type: due to unspecified organism Qualified Code(s): J18.9 - Pneumonia, unspecified organism Category: Medical Code(s): J18.9 - Pneumonia, unspecified organism (2) Severe sepsis Current visit: Yes Status: Acute Category: Medical Code(s): A41.9 - Sepsis, unspecified organism; R65.20 - Severe sepsis without septic shock (3) Urinary tract infection Current visit: Yes Status: Acute Category: Medical Code(s): N39.0 - Urinary tract infection, site not specified (4) Acute on chronic renal failure Current visit: Yes Status: Acute Category: Medical Code(s): N17.9 - Acute kidney failure, unspecified; N18.9 - Chronic kidney disease, unspecified (5) Type 2 diabetes mellitus Current visit: Yes Status: Acute Category: Medical Code(s): E11.9 - Type 2 diabetes mellitus without complications (6) Hypertension Current visit: Yes Status: Acute Category: Medical Code(s): I10 - Essential (primary) hypertension (7) Hyperlipidemia Current visit: Yes Status: Acute Category: Medical Code(s): E78.5 - Hyperlipidemia, unspecified (8) Presbycusis Current visit: Yes Status: Acute Category: Medical Code(s): H91.10 - Presbycusis, unspecified ear (9) History of uterine cancer Current visit: Yes Status: Acute Category: Medical Code(s): Z85.42 - Personal history of malignant neoplasm of other parts of uterus (10) History of lung cancer Current visit: Yes Status: Acute Category: Medical Code(s): Z85.118 - Personal history of other malignant neoplasm of bronchus and lung (11) History of breast cancer Current visit: Yes Status: Acute Category: Medical Code(s): Z85.3 - Personal history of malignant neoplasm of breast (12) Diabetic neuropathy Current visit: Yes Status: Acute Category: Medical Code(s): E11.40 - Type 2 diabetes mellitus with diabetic neuropathy, unspecified (13) DNR (do not resuscitate) Current visit: Yes Status: Acute Category: Medical Code(s): Z66 - Do not resuscitate (14) Anemia Current visit: Yes Status: Acute Category: Medical Code(s): D64.9 - Anemia, unspecified (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 coli UTI Current visit: Yes Status: Acute Category: Medical Code(s): N39.0 - Urinary tract infection, site not specified; B96.20 - Unspecified Escherichia coli [E. coli] as the cause of diseases classified elsewhere The patient's infection will respond to the chosen ABx?: Yes Is the patient receiving the right drug, dose, and route?: Yes Could a more targeted ABx be ordered?: No (AZITH FOR PNA, INVANZ FOR UTI. AFEBRILE, WBC WNL.)
[2019-08-09 20:33] LABS: Hematocrit 33.9 % (37.0-47.0)
[2019-08-09 20:41] LABS: Hemoglobin 11.6 g/dL (12.2-16.2)
[2019-08-10 07:38] LABS: Anion Gap 13.7 mEq/L (5-15); Calcium 8.9 mg/dl (8.4-10.2)
[2019-08-10 08:04] LABS: Basophils # 0.1 K/mm3 (0-0.2); Basophils % 0.6 % (0.1-2.0); Eosinophils # 0.2 K/mm3 (0.0-0.4); Eosinophils % 1.5 % (0.1-12.0); Hemoglobin 11.4 g/dL (12.2-16.2); Lymphocytes # 3.2 K/mm3 (0.7-4.5); Lymphocytes % 24.5 % (10-50); Mean Corpuscular HGB Conc 31.6 g/dL (31.8-35.4); Mean Corpuscular Volume 104.4 fl (81-99); Mean Platelet Volume 9.4 fl (7.4-10.4); Monocytes # 0.5 K/mm3 (0.1-1.0); Monocytes % 3.9 % (1.7-9.3); Neutrophils % 69.4 % (37.0-80.0); Platelet Count 130 K/mm3 (142-424); Red Blood Count 3.45 M/mm3 (4.20-5.40); Red Cell Distribution Width 19.6 % (11.5-17.5)
--- NOTE | 2019-08-10 08:41 | Progress Note ---
Internal Medicine - PN: Subj *Date: 08/10/19 *Time: 08:38 Interval history: Per patient's daughter, patient has slept more over the last day, completed transfusion without difficulty. Exam Vital signs and Labs for Last 24 Hours: Temp Pulse Resp BP Pulse Ox 98.0 F 83 20 175/76 H 96 08/10/19 08:00 08/10/19 08:00 08/10/19 08:00 08/10/19 08:00 08/10/19 08:00 Laboratory Results - last 24 hr 08/08/19 16:38: POC Glucose 132 H 08/09/19 09:45: Blood Type O Positive, Antibody Screen Negative, Crossmatch (AHG) See Detail 08/09/19 10:40: Blood Type Confirm O Positive 08/09/19 10:52: POC Glucose 131 H 08/09/19 16:56: POC Glucose 112 H 08/09/19 20:13: Hgb 11.6 L D, Hct 33.9 L 08/09/19 20:13: POC Glucose 95 08/10/19 05:25: POC Glucose 105 08/10/19 07:11: WBC 13.0 H, RBC 3.45 L D, Hgb 11.4 L, Hct 36.0 L, MCV 104.4 H, MCH 32.9 H, MCHC 31.6 L, RDW 19.6 H D, Plt Count 130 L, MPV 9.4, Neut % (Auto) 69.4, Lymph % (Auto) 24.5, [place] % (Auto) 3.9, Eos % (Auto) 1.5, Baso % (Auto) 0.6, Neut # (Auto) 9.0 H, Lymph # (Auto) 3.2, [place] # (Auto) 0.5, Eos # (Auto) 0.2, Baso # (Auto) 0.1 08/10/19 07:11: Sodium 137, Potassium 4.7, Chloride 106, Carbon Dioxide 22, Anion Gap 13.7, BUN 27 H, Creatinine 2.20 H, Estimated Creat Clear 18, Estimated GFR 21 L, Est GFR ( Amer) 26 L, Glucose 105 H, Calcium 8.9 Vital Signs - 24 hr 08/09/19 12:00 08/09/19 12:33 08/09/19 12:35 Temperature 98.2 F 98.0 F 98.1 F Pulse Rate 76 76 Pulse Rate [Left Radial] 79 Respiratory Rate 17 28 H 26 H Blood Pressure 154/76 H 143/76 H Blood Pressure [Left Arm] 140/85 02 Sat by Pulse Oximetry 88 L 92 L 76 L 08/09/19 12:39 08/09/19 12:40 08/09/19 12:45 Temperature 97.9 F 97.9 F Pulse Rate 75 75 75 Pulse Rate [Left Radial] Respiratory Rate 28 H 26 H Blood Pressure 164/79 H 161/78 H Blood Pressure [Left Arm] 02 Sat by Pulse Oximetry 97 95 08/09/19 12:50 08/09/19 13:05 08/09/19 13:20 Temperature 98.0 F 98.1 F 97.9 F Pulse Rate 77 78 76 Pulse Rate [Left Radial] Respiratory Rate 28 H 24 28 H Blood Pressure 159/78 H 159/75 H Blood Pressure [Left Arm] 02 Sat by Pulse Oximetry 89 L 93 L 94 L 08/09/19 13:35 08/09/19 14:35 08/09/19 15:22 Temperature 97.9 F 98.1 F 98.1 F Pulse Rate 76 76 78 Pulse Rate [Left Radial] Respiratory Rate 24 24 24 Blood Pressure 160/72 H 148/73 H 170/78 H Blood Pressure [Left Arm] 02 Sat by Pulse Oximetry 94 L 95 96 08/09/19 16:02 08/09/19 16:05 08/09/19 16:10 Temperature 97.9 F 97.9 F 98.3 F Pulse Rate 80 77 76 Pulse Rate [Left Radial] Respiratory Rate 20 20 24 Blood Pressure 173/79 H 174/72 H Blood Pressure [Left Arm] 02 Sat by Pulse Oximetry 95 95 93 L 08/09/19 16:15 08/09/19 16:20 08/09/19 16:35 Temperature 98.1 F 97.8 F 97.8 F Pulse Rate 76 74 76 Pulse Rate [Left Radial] Respiratory Rate 24 20 20 Blood Pressure 168/83 H 171/75 H 176/76 H Blood Pressure [Left Arm] 02 Sat by Pulse Oximetry 95 95 94 L 08/09/19 16:50 08/09/19 17:05 08/09/19 18:05 Temperature 97.5 F L 98.0 F 97.9 F Pulse Rate 81 76 79 Pulse Rate [Left Radial] Respiratory Rate 24 24 24 Blood Pressure 178/78 H 157/82 H 155/95 H Blood Pressure [Left Arm] 02 Sat by Pulse Oximetry 97 95 94 L 08/09/19 18:26 08/09/19 19:12 08/09/19 19:58 Temperature 98.1 F Pulse Rate 78 79 Pulse Rate [Left Radial] Respiratory Rate 24 Blood Pressure 178/83 H Blood Pressure [Left Arm] 02 Sat by Pulse Oximetry 96 94 L 08/09/19 20:12 08/09/19 23:51 08/10/19 03:57 Temperature 98.5 F 98.1 F 98.9 F Pulse Rate 79 Pulse Rate [Left Radial] 81 78 Respiratory Rate 18 22 20 Blood Pressure 154/91 H Blood Pressure [Left Arm] 173/76 H 179/77 H 02 Sat by Pulse Oximetry 96 94 L 97 08/10/19 06:38 08/10/19 08:00 Temperature 98.0 F Pulse Rate 80 Pulse Rate [Left Radial] 83 Respiratory Rate 20 Blood Pressure Blood Pressure [Left Arm] 175/76 H 02 Sat by Pulse Oximetry 95 96 I & O for Last 24 hours: Intake & Output 08/07/19 08/08/19 08/09/19 08/10/19 23:59 23:59 23:59 23:59 Intake Total 3982 / 3982 2044 / 2044 1801.16 / 1801.16 634 / 634 Output Total 1125 / 1125 1400 / 1400 Balance 2857 / 2857 644 / 644 1801.16 / 1801.16 634 / 634 Weight 138 lb 14.259 oz 141 lb 4 oz 144 lb 7 oz 140 lb 1 oz - Constitutional no acute distress - *Routine HEENT Exam Head: Present: normocephalic ENT: Present: mucous membranes moist - *Routine Neck Exam Present: supple. Absent: lymphadenopathy - *Routine Respiratory Exam Present: CTA bilaterally (anteriorly) - *Routine Cardiovascular Exam Present: RRR - *Routine Abdominal Exam Present: soft, normoactive bowel sounds. Absent: tenderness - *Routine Extremities Exam Absent: cyanosis, clubbing, edema - *Routine Skin Exam Present: warm. Absent: rash - *Routine Neurological Exam sleeping Assessment and Plan (1) Pneumonia of both lower lobes Problem details: D/t e. Coli Current visit: Yes Status: Acute Qualifiers: Pneumonia type: due to unspecified organism Qualified Code(s): J18.9 - Pneumonia, unspecified organism Category: Medical Code(s): J18.9 - Pneumonia, unspecified organism (2) Severe sepsis Current visit: Yes Status: Acute Category: Medical Code(s): A41.9 - Sepsis, unspecified organism; R65.20 - Severe sepsis without septic shock (3) Urinary tract infection Current visit: Yes Status: Acute Category: Medical Code(s): N39.0 - Urinary tract infection, site not specified (4) Acute on chronic renal failure Current visit: Yes Status: Acute Category: Medical Code(s): N17.9 - Acute kidney failure, unspecified; N18.9 - Chronic kidney disease, unspecified (5) Type 2 diabetes mellitus Current visit: Yes Status: Acute Category: Medical Code(s): E11.9 - Type 2 diabetes mellitus without complications (6) Hypertension Current visit: Yes Status: Acute Category: Medical Code(s): I10 - Essential (primary) hypertension (7) Hyperlipidemia Current visit: Yes Status: Acute Category: Medical Code(s): E78.5 - Hyperl ipidemia, unspecified (8) Presbycusis Current visit: Yes Status: Acute Category: Medical Code(s): H91.10 - Presbycusis, unspecified ear (9) History of uterine cancer Current visit: Yes Status: Acute Category: Medical Code(s): Z85.42 - Personal history of malignant neoplasm of other parts of uterus (10) History of lung cancer Current visit: Yes Status: Acute Category: Medical Code(s): Z85.118 - Personal history of other malignant neoplasm of bronchus and lung (11) History of breast cancer Current visit: Yes Status: Acute Category: Medical Code(s): Z85.3 - Personal history of malignant neoplasm of breast (12) Diabetic neuropathy Current visit: Yes Status: Acute Category: Medical Code(s): E11.40 - Type 2 diabetes mellitus with diabetic neuropathy, unspecified (13) DNR (do not resuscitate) Current visit: Yes Status: Acute Category: Medical Code(s): Z66 - Do not resuscitate (14) Anemia Current visit: Yes Status: Acute Category: Medical Code(s): D64.9 - Anemia, unspecified (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 coli UTI Current visit: Yes Status: Acute Category: Medical Code(s): N39.0 - Urinary tract infection, site not specified; B96.20 - Unspecified Escherichia coli [E. coli] as the cause of diseases classified elsewhere - Assessment and plan all Dx Assessment and Plan for all problems:: No changes in treatment today. Plan PT evaluation as patient will likely need placement in SNF at time of discharge.
--- NOTE | 2019-08-10 10:14 | Progress Note ---
Internal Medicine - PN: Subj *Date: 08/10/19 *Time: 10:14 Exam Vital signs and Labs for Last 24 Hours: Temp Pulse Resp BP Pulse Ox 98.0 F 83 20 175/76 H 96 08/10/19 08:00 08/10/19 08:00 08/10/19 08:00 08/10/19 08:00 08/10/19 08:00 Laboratory Results - last 24 hr 08/08/19 16:38: POC Glucose 132 H 08/09/19 09:45: Blood Type O Positive, Antibody Screen Negative, Crossmatch (AHG) See Detail 08/09/19 10:40: Blood Type Confirm O Positive 08/09/19 10:52: POC Glucose 131 H 08/09/19 16:56: POC Glucose 112 H 08/09/19 20:13: Hgb 11.6 L D, Hct 33.9 L 08/09/19 20:13: POC Glucose 95 08/10/19 05:25: POC Glucose 105 08/10/19 07:11: WBC 13.0 H, RBC 3.45 L D, Hgb 11.4 L, Hct 36.0 L, MCV 104.4 H, MCH 32.9 H, MCHC 31.6 L, RDW 19.6 H D, Plt Count 130 L, MPV 9.4, Neut % (Auto) 69.4, Lymph % (Auto) 24.5, [place] % (Auto) 3.9, Eos % (Auto) 1.5, Baso % (Auto) 0.6, Neut # (Auto) 9.0 H, Lymph # (Auto) 3.2, [place] # (Auto) 0.5, Eos # (Auto) 0.2, Baso # (Auto) 0.1 08/10/19 07:11: Sodium 137, Potassium 4.7, Chloride 106, Carbon Dioxide 22, Anion Gap 13.7, BUN 27 H, Creatinine 2.20 H, Estimated Creat Clear 18, Estimated GFR 21 L, Est GFR ( Amer) 26 L, Glucose 105 H, Calcium 8.9 I & O for Last 24 hours: Intake & Output 08/07/19 08/08/19 08/09/19 08/10/19 23:59 23:59 23:59 23:59 Intake Total 3982 / 3982 2044 / 204 180.16 / 1800.16 634 / 634 Output Total 1125 / 1125 1400 / 1400 Balance 2857 / 2857 644 / 644 18016 / 16 634 / 634 Weight 63 kg 64.07 kg 65.516 kg 63.531 kg Microbiology Reports for the Last 24 Hours: Microbiology 08/05/19 08:56 Blood Blood Culture - Final NO GROWTH AFTER 5 DAYS 08/05/19 08:56 Blood Blood Culture - Final NO GROWTH AFTER 5 DAYS Assessment and Plan (1) Pneumonia of both lower lobes Problem details: D/t e. Coli Current visit: Yes Status: Acute Qualifiers: Pneumonia type: due to unspecified organism Qualified Code(s): J18.9 - Pneumonia, unspecified organism Category: Medical Code(s): J18.9 - Pneumonia, unspecified organism (2) Severe sepsis Current visit: Yes Status: Acute Category: Medical Code(s): A41.9 - Sepsis, unspecified organism; R65.20 - Severe sepsis without septic shock (3) Urinary tract infection Current visit: Yes Status: Acute Category: Medical Code(s): N39.0 - Urinary tract infection, site not specified (4) Acute on chronic renal failure Current visit: Yes Status: Acute Category: Medical Code(s): N17.9 - Acute kidney failure, unspecified; N18.9 - Chronic kidney disease, unspecified (5) Type 2 diabetes mellitus Current visit: Yes Status: Acute Category: Medical Code(s): E11.9 - Type 2 diabetes mellitus without complications (6) Hypertension Current visit: Yes Status: Acute Category: Medical Code(s): I10 - Essential (primary) hypertension (7) Hyperlipidemia Current visit: Yes Status: Acute Category: Medical Code(s): E78.5 - Hyperlipidemia, unspecified (8) Presbycusis Current visit: Yes Status: Acute Category: Medical Code(s): H91.10 - Presbycusis, unspecified ear (9) History of uterine cancer Current visit: Yes Status: Acute Category: Medical Code(s): Z85.42 - Personal history of malignant neoplasm of other parts of uterus (10) History of lung cancer Current visit: Yes Status: Acute Category: Medical Code(s): Z85.118 - Personal history of other malignant neoplasm of bronchus and lung (11) History of breast cancer Current visit: Yes Status: Acute Category: Medical Code(s): Z85.3 - Personal history of malignant neoplasm of breast (12) Diabetic neuropathy Current visit: Yes Status: Acute Category: Medical Code(s): E11.40 - Type 2 diabetes mellitus with diabetic neuropathy, unspecified (13) DNR (do not resuscitate) Current visit: Yes Status: Acute Category: Medical Code(s): Z66 - Do not resuscitate (14) Anemia Current visit: Yes Status: Acute Category: Medical Code(s): D64.9 - Anemia, unspecified (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 coli UTI Current visit: Yes Status: Acute Category: Medical Code(s): N39.0 - Urinary tract infection, site not specified; B96.20 - Unspecified Escherichia coli [E. coli] as the cause of diseases classified elsewhere The patient's infection will respond to the chosen ABx?: Yes Is the patient receiving the right drug, dose, and route?: Yes Could a more targeted ABx be ordered?: No (E COLI IN URINE AND SPUTUM SENSITIVE TO INVANZ)
--- NOTE | 2019-08-11 09:07 | Progress Note ---
Internal Medicine - PN: Subj *Date: 08/11/19 *Time: 09:05 Interval history: Patient has no new complaints today, she still is fatigued and is sleeping a lot. She had a bowel movement over night. Exam Vital signs and Labs for Last 24 Hours: Temp Pulse Resp BP Pulse Ox 98.0 F 84 20 154/77 H 94 L 08/11/19 00:00 08/11/19 00:00 08/11/19 00:00 08/11/19 00:00 08/11/19 06:37 Laboratory Results - last 24 hr 08/10/19 10:55: POC Glucose 88 08/10/19 16:36: POC Glucose 143 H 08/10/19 19:49: POC Glucose 189 H 08/11/19 05:12: POC Glucose 85 Vital Signs - 24 hr 08/10/19 11:53 08/10/19 16:00 08/10/19 19:31 Temperature 97.2 F L 97.8 F Pulse Rate 77 Pulse Rate [Left Radial] 70 74 Respiratory Rate 18 16 Blood Pressure [Left Arm] 111/69 150/76 H 02 Sat by Pulse Oximetry 98 98 94 L 08/10/19 20:00 08/11/19 00:00 08/11/19 06:08 Temperature 99.0 F 98.0 F Pulse Rate Pulse Rate [Left Radial] 83 84 Respiratory Rate 18 20 Blood Pressure [Left Arm] 157/75 H 154/77 H 02 Sat by Pulse Oximetry 97 94 L 85 L 08/11/19 06:37 Temperature Pulse Rate Pulse Rate [Left Radial] Respiratory Rate Blood Pressure [Left Arm] 02 Sat by Pulse Oximetry 94 L I & O for Last 24 hours: Intake & Output 08/08/19 08/09/19 08/10/19 08/11/19 23:59 23:59 23:59 23:59 Intake Total 2044 / 2044 1801.16 / 1801.16 1114 / 1114 Output Total 1400 / 1400 Balance 644 / 644 1801.16 / 1801.16 1114 / 1114 Weight 141 lb 4 oz 144 lb 7 oz 140 lb 1 oz 136 lb 8 oz Microbiology Reports for the Last 24 Hours: Microbiology 08/05/19 08:56 Blood Blood Culture - Final NO GROWTH AFTER 5 DAYS 08/05/19 08:56 Blood Blood Culture - Final NO GROWTH AFTER 5 DAYS - Constitutional no acute distress - *Routine HEENT Exam Head: Present: normocephalic Eye: Present: EOMI ENT: Present: mucous membranes moist - *Routine Neck Exam Present: supple. Absent: lymphadenopathy - *Routine Respiratory Exam Present: diminished air movement (in the bases) - *Routine Cardiovascular Exam Present: RRR - *Routine Abdominal Exam Present: soft, normoactive bowel sounds. Absent: tenderness - *Routine Extremities Exam Absent: cyanosis, clubbing, edema - *Routine Skin Exam Present: warm. Absent: rash - *Routine Neurological Exam Present: alert Assessment and Plan (1) Pneumonia of both lower lobes Problem details: D/t e. Coli Current visit: Yes Status: Acute Qualifiers: Pneumonia type: due to unspecified organism Qualified Code(s): J18.9 - Pneumonia, unspecified organism Category: Medical Code(s): J18.9 - Pneumonia, unspecified organism (2) Severe sepsis Current visit: Yes Status: Acute Category: Medical Code(s): A41.9 - Sepsis, unspecified organism; R65.20 - Severe sepsis without septic shock (3) Urinary tract infection Current visit: Yes Status: Acute Category: Medical Code(s): N39.0 - Urinary tract infection, site not specified (4) Acute on chronic renal failure Current visit: Yes Status: Acute Category: Medical Code(s): N17.9 - Acute kidney failure, unspecified; N18.9 - Chronic kidney disease, unspecified (5) Type 2 diabetes mellitus Current visit: Yes Status: Acute Category: Medical Code(s): E11.9 - Type 2 diabetes mellitus without complications (6) Hypertension Current visit: Yes Status: Acute Category: Medical Code(s): I10 - Essential (primary) hypertension (7) Hyperlipidemia Current visit: Yes Status: Acute Category: Medical Code(s): E78.5 - Hyperlipidemia, unspecified (8) Presbycusis Current visit: Yes Status: Acute Category: Medical Code(s): H91.10 - Presbycusis, unspecified ear (9) History of uterine cancer Current visit: Yes Status: Acute Category: Medical Code(s): Z85.42 - Personal history of malignant neoplasm of other parts of uterus (10) History of lung cancer Current visit: Yes Status: Acute Category: Medical Code(s): Z85.118 - Personal history of other malignant neoplasm of bronchus and lung (11) History of breast cancer Current visit: Yes Status: Acute Category: Medical Code(s): Z85.3 - Personal history of malignant neoplasm of breast (12) Diabetic neuropathy Current visit: Yes Status: Acute Category: Medical Code(s): E11.40 - Type 2 diabetes mellitus with diabetic neuropathy, unspecified (13) DNR (do not resuscitate) Current visit: Yes Status: Acute Category: Medical Code(s): Z66 - Do not resuscitate (14) Anemia Current visit: Yes Status: Acute Category: Medical Code(s): D64.9 - Anemia, unspecified (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 coli UTI Current visit: Yes Status: Acute Category: Medical Code(s): N39.0 - Ur inary tract infection, site not specified; B96.20 - Unspecified Escherichia coli [E. coli] as the cause of diseases classified elsewhere - Assessment and plan all Dx Assessment and Plan for all problems:: Repeat CXR this morning, plan to check Echo today due to persistent hypoxia.
[2019-08-12 07:47] LABS: Basophils # 0.1 K/mm3 (0-0.2); Basophils % 0.6 % (0.1-2.0); Eosinophils # 0.4 K/mm3 (0.0-0.4); Eosinophils % 2.8 % (0.1-12.0); Hematocrit 36.6 % (37.0-47.0); Hemoglobin 11.7 g/dL (12.2-16.2); Lymphocytes # 2.7 K/mm3 (0.7-4.5); Lymphocytes % 20.6 % (10-50); Mean Corpuscular HGB Conc 31.9 g/dL (31.8-35.4); Mean Corpuscular Volume 103.7 fl (81-99); Mean Platelet Volume 8.9 fl (7.4-10.4); Monocytes # 0.6 K/mm3 (0.1-1.0); Monocytes % 4.4 % (1.7-9.3); Neutrophils # 9.5 K/mm3 (1.8-7.8); Neutrophils % 71.5 % (37.0-80.0); Platelet Count 124 K/mm3 (142-424); Red Blood Count 3.52 M/mm3 (4.20-5.40); Red Cell Distribution Width 18.6 % (11.5-17.5); White Blood Count 13.2 K/mm3 (4.8-10.8)
[2019-08-12 08:37] LABS: Anion Gap 10.9 mEq/L (5-15); Calcium 9.4 mg/dl (8.4-10.2)
--- NOTE | 2019-08-12 12:49 | Progress Note ---
Internal Medicine - PN: Subj *Date: 08/12/19 *Time: 09:00 Interval history: She is resting comfortably, without respiratory distress. I spoke with her daughter. CXR reviewed. Labs reviewed Exam Vital signs and Labs for Last 24 Hours: Temp Pulse Resp BP Pulse Ox 98.1 F 89 18 178/93 H 95 08/12/19 08:00 08/12/19 08:00 08/12/19 08:00 08/12/19 08:00 08/12/19 08:00 Laboratory Results - last 24 hr 08/11/19 16:23: POC Glucose 132 H 08/11/19 20:03: POC Glucose 131 H 08/12/19 06:05: POC Glucose 80 08/12/19 06:25: WBC 13.2 H, RBC 3.52 L, Hgb 11.7 L, Hct 36.6 L, MCV 103.7 H, MCH 33.1 H, MCHC 31.9, RDW 18.6 H, Plt Count 124 L, MPV 8.9, Neut % (Auto) 71.5, Lymph % (Auto) 20.6, [place] % (Auto) 4.4, Eos % (Auto) 2.8, Baso % (Auto) 0.6, Neut # (Auto) 9.5 H, Lymph # (Auto) 2.7, [place] # (Auto) 0.6, Eos # (Auto) 0.4, Baso # (Auto) 0.1 08/12/19 06:25: Sodium 137, Potassium 4.9, Chloride 108 H, Carbon Dioxide 23, Anion Gap 10.9, BUN 34 H D, Creatinine 2.20 H, Estimated Creat Clear 18, Estimated GFR 21 L, Est GFR ( Amer) 26 L, Glucose 80, Calcium 9.4 Laboratory Tests 08/12/19 08/12/19 06:25 06:25 WBC 13.2 H Hgb 11.7 L Hct 36.6 L MCV 103.7 H Potassium 4.9 BUN 34 H D Creatinine 2.20 H I & O for Last 24 hours: Intake & Output 08/10/19 08/11/19 08/12/19 08/13/19 11:59 11:59 11:59 12:59 Intake Total 1374.16 / 1374.16 600 / 600 600 / 600 Balance 1374.16 / 1374.16 600 / 600 600 / 600 Weight 140 lb 1 oz 136 lb 8 oz 139 lb 2 oz - Constitutional no acute distress (resting) - *Routine Respiratory Exam Present: diminished air movement (at the bases, otherwise moving air well). Absent: respiratory distress - *Routine Cardiovascular Exam Present: RRR - *Routine Abdominal Exam Present: soft. Absent: tenderness - *Routine Extremities Exam Present: edema (trace) - *Routine Neurological Exam Absent: motor deficit Assessment and Plan (1) Pneumonia of both lower lobes Problem details: D/t e. Coli Current visit: Yes Status: Acute Qualifiers: Pneumonia type: due to unspecified organism Qualified Code(s): J18.9 - Pneumonia, unspecified organism Category: Medical Code(s): J18.9 - Pneumonia, unspecified organism (2) Severe sepsis Current visit: Yes Status: Acute Category: Medical Code(s): A41.9 - Sepsis, unspecified organism; R65.20 - Severe sepsis without septic shock (3) Urinary tract infection Current visit: Yes Status: Acute Category: Medical Code(s): N39.0 - Urinary tract infection, site not specified (4) Acute on chronic renal failure Current visit: Yes Status: Acute Category: Medical Code(s): N17.9 - Acute kidney failure, unspecified; N18.9 - Chronic kidney disease, unspecified (5) Type 2 diabetes mellitus Current visit: Yes Status: Acute Category: Medical Code(s): E11.9 - Type 2 diabetes mellitus without complications (6) Hypertension Current visit: Yes Status: Acute Category: Medical Code(s): I10 - Essential (primary) hypertension (7) Hyperlipidemia Current visit: Yes Status: Acute Category: Medical Code(s): E78.5 - Hyperlipidemia, unspecified (8) Presbycusis Current visit: Yes Status: Acute Category: Medical Code(s): H91.10 - Presbycusis, unspecified ear (9) History of uterine cancer Current visit: Yes Status: Acute Category: Medical Code(s): Z85.42 - Personal history of malignant neoplasm of other parts of uterus (10) History of lung cancer Current visit: Yes Status: Acute Category: Medical Code(s): Z85.118 - Personal history of other malignant neoplasm of bronchus and lung (11) History of breast cancer Current visit: Yes Status: Acute Category: Medical Code(s): Z85.3 - Personal history of malignant neoplasm of breast (12) Diabetic neuropathy Current visit: Yes Status: Acute Category: Medical Code(s): E11.40 - Type 2 diabetes mellitus with diabetic neuropathy, unspecified (13) DNR (do not resuscitate) Current visit: Yes Status: Acute Category: Medical Code(s): Z66 - Do not resuscitate (14) Anemia Current visit: Yes Status: Acute Category: Medical Code(s): D64.9 - Anemi a, unspecified (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 coli UTI Current visit: Yes Status: Acute Category: Medical Code(s): N39.0 - Urinary tract infection, site not specified; B96.20 - Unspecified Escherichia coli [E. coli] as the cause of diseases classified elsewhere - Assessment and plan all Dx Assessment and Plan for all problems:: continue present treatment.
--- NOTE | 2019-08-13 11:47 | Progress Note ---
Internal Medicine - PN: Subj *Date: 08/13/19 *Time: 11:44 Interval history: Clinically she is unchanged. She does not respond to me when I examine her. She has decreased breath sounds at the bases with some rales. Exam Vital signs and Labs for Last 24 Hours: Temp Pulse Resp BP Pulse Ox 97.9 F 79 18 146/73 H 97 08/13/19 08:00 08/13/19 08:00 08/13/19 08:00 08/13/19 08:00 08/13/19 08:00 Laboratory Results - last 24 hr 08/12/19 11:03: POC Glucose 110 08/12/19 21:14: POC Glucose 136 H 08/13/19 11:03: POC Glucose 109 I & O for Last 24 hours: Intake & Output 08/10/19 08/11/19 08/12/19 08/13/19 11:59 11:59 11:59 12:59 Intake Total 1374.16 / 1374.16 600 / 600 600 / 600 410 / 410 Balance 1374.16 / 1374.16 600 / 600 600 / 600 410 / 410 Weight 140 lb 1 oz 136 lb 8 oz 139 lb 2 oz 138 lb 1 oz - Constitutional no acute distress - *Routine HEENT Exam Head: Present: normocephalic ENT: Present: mucous membranes moist - *Routine Respiratory Exam Present: decreased breath sounds (At bases), rales (At bases). Absent: respiratory distress, stridor - *Routine Cardiovascular Exam Present: RRR - *Routine Abdominal Exam Present: soft. Absent: tenderness - *Routine Extremities Exam Absent: edema - *Routine Neurological Exam Absent: alert (Sleeping and not responsive to exam.) Assessment and Plan (1) Pneumonia of both lower lobes Problem details: D/t e. Coli Current visit: Yes Status: Acute Qualifiers: Pneumonia type: due to unspecified organism Qualified Code(s): J18.9 - Pneumonia, unspecified organism Category: Medical Code(s): J18.9 - Pneumonia, unspecified organism (2) Severe sepsis Current visit: Yes Status: Acute Category: Medical Code(s): A41.9 - Sepsis, unspecified organism; R65.20 - Severe sepsis without septic shock (3) Urinary tract infection Current visit: Yes Status: Acute Category: Medical Code(s): N39.0 - Urinary tract infection, site not specified (4) Acute on chronic renal failure Current visit: Yes Status: Acute Category: Medical Code(s): N17.9 - Acute kidney failure, unspecified; N18.9 - Chronic kidney disease, unspecified (5) Type 2 diabetes mellitus Current visit: Yes Status: Acute Category: Medical Code(s): E11.9 - Type 2 diabetes mellitus without complications (6) Hypertension Current visit: Yes Status: Acute Category: Medical Code(s): I10 - Essential (primary) hypertension (7) Hyperlipidemia Current visit: Yes Status: Acute Category: Medical Code(s): E78.5 - Hyperlipidemia, unspecified (8) Presbycusis Current visit: Yes Status: Acute Category: Medical Code(s): H91.10 - Presbycusis, unspecified ear (9) History of uterine cancer Current visit: Yes Status: Acute Category: Medical Code(s): Z85.42 - Personal history of malignant neoplasm of other parts of uterus (10) History of lung cancer Current visit: Yes Status: Acute Category: Medical Code(s): Z85.118 - Personal history of other malignant neoplasm of bronchus and lung (11) History of breast cancer Current visit: Yes Status: Acute Category: Medical Code(s): Z85.3 - Personal history of malignant neoplasm of breast (12) Diabetic neuropathy Current visit: Yes Status: Acute Category: Medical Code(s): E11.40 - Type 2 diabetes mellitus with diabetic neuropathy, unspecified (13) DNR (do not resuscitate) Current visit: Yes Status: Acute Category: Medical Code(s): Z66 - Do not resuscitate (14) Anemia Current visit: Yes Status: Acute Category: Medical Code(s): D64.9 - Anemia, unspecified (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 coli UTI Current visit: Yes Status: Acute Category: Medical Code(s): N39.0 - Urinary tract infection, site not specified; B96.20 - Unspecified Escherichia coli [E. coli] as the cause of diseases classified elsewhere - Assessment and plan all Dx Assessment and Plan for all problems:: Continue present care.
--- NOTE | 2019-08-14 09:23 | Progress Note ---
Internal Medicine - PN: Subj *Date: 08/14/19 *Time: 09:21 Interval history: She is actually more alert this morning, much to the pleasure of her daughter. She actually responds to some questioning. Her as are open. Her lungs sound clear. Exam Vital signs and Labs for Last 24 Hours: Temp Pulse Resp BP Pulse Ox 97.8 F 85 18 144/84 H 90 L 08/14/19 08:00 08/14/19 08:00 08/14/19 08:00 08/14/19 08:00 08/14/19 08:00 Laboratory Results - last 24 hr 08/13/19 06:19: POC Glucose 94 08/13/19 11:03: POC Glucose 109 08/13/19 16:52: POC Glucose 93 08/13/19 19:53: POC Glucose 118 H 08/14/19 05:44: POC Glucose 85 I & O for Last 24 hours: Intake & Output 08/11/19 08/12/19 08/13/19 08/14/19 10:59 10:59 11:59 11:59 Intake Total 610 / 610 Output Total 300 / 300 Balance 310 / 310 Weight 135 lb 4 oz - Constitutional no acute distress - *Routine HEENT Exam Eye: Present: PERRL ENT: Present: mucous membranes moist - *Routine Respiratory Exam Present: CTA bilaterally (Moving air much better. Still with some decrease at the bases.) - *Routine Cardiovascular Exam Present: RRR - *Routine Abdominal Exam Present: soft. Absent: tenderness - *Routine Extremities Exam Absent: edema Assessment and Plan (1) Pneumonia of both lower lobes Problem details: D/t e. Coli Current visit: Yes Status: Acute Qualifiers: Pneumonia type: due to unspecified organism Qualified Code(s): J18.9 - Pneumonia, unspecified organism Category: Medical Code(s): J18.9 - Pneumonia, unspecified organism (2) Severe sepsis Current visit: Yes Status: Acute Category: Medical Code(s): A41.9 - Sepsis, unspecified organism; R65.20 - Severe sepsis without septic shock (3) Urinary tract infection Current visit: Yes Status: Acute Category: Medical Code(s): N39.0 - Urinary tract infection, site not specified (4) Acute on chronic renal failure Current visit: Yes Status: Acute Category: Medical Code(s): N17.9 - Acute kidney failure, unspecified; N18.9 - Chronic kidney disease, unspecified (5) Type 2 diabetes mellitus Current visit: Yes Status: Acute Category: Medical Code(s): E11.9 - Type 2 diabetes mellitus without complications (6) Hypertension Current visit: Yes Status: Acute Category: Medical Code(s): I10 - Essential (primary) hypertension (7) Hyperlipidemia Current visit: Yes Status: Acute Category: Medical Code(s): E78.5 - Hyperlipidemia, unspecified (8) Presbycusis Current visit: Yes Status: Acute Category: Medical Code(s): H91.10 - Presbycusis, unspecified ear (9) History of uterine cancer Current visit: Yes Status: Acute Category: Medical Code(s): Z85.42 - Personal history of malignant neoplasm of other parts of uterus (10) History of lung cancer Current visit: Yes Status: Acute Category: Medical Code(s): Z85.118 - Personal history of other malignant neoplasm of bronchus and lung (11) History of breast cancer Current visit: Yes Status: Acute Category: Medical Code(s): Z85.3 - Personal history of malignant neoplasm of breast (12) Diabetic neuropathy Current visit: Yes Status: Acute Category: Medical Code(s): E11.40 - Type 2 diabetes mellitus with diabetic neuropathy, unspecified (13) DNR (do not resuscitate) Current visit: Yes Status: Acute Category: Medical Code(s): Z66 - Do not resuscitate (14) Anemia Current visit: Yes Status: Acute Category: Medical Code(s): D64.9 - Anemia, unspecified (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 coli UTI Current visit: Yes Status: Acute Category: Medical Code(s): N39.0 - Urinary tract infection, site not specified; B96.20 - Unspecified Escherichia coli [E. coli] as the cause of diseases classified elsewhere - Assessment and plan all Dx Assessment and Plan for all problems:: Disposition will be an issue. Case management involved.
--- NOTE | 2019-08-15 09:25 | Progress Note ---
Internal Medicine - PN: Subj *Date: 08/15/19 *Time: 09:21 Interval history: This patient has improved significantly the past 2 days. This morning she is actually awake and taking her medications and will smile. Her daughter is quite pleased with her progress. She is in no respiratory distress. She has been approved for discharge to [facility]. She will require 4 more days of ertapenem which will be administered IM. Exam Vital signs and Labs for Last 24 Hours: Temp Pulse Resp BP Pulse Ox 97.7 F 80 18 156/74 H 96 08/15/19 07:55 08/15/19 07:55 08/15/19 07:55 08/15/19 07:55 08/15/19 07:55 Laboratory Results - last 24 hr 08/14/19 11:21: POC Glucose 102 08/14/19 16:36: POC Glucose 108 08/14/19 20:12: POC Glucose 122 H 08/15/19 05:48: POC Glucose 80 I & O for Last 24 hours: Intake & Output 08/12/19 08/13/19 08/14/19 08/15/19 10:59 11:59 11:59 11:59 Intake Total 610 / 610 360 / 360 Output Total 300 / 300 Balance 310 / 310 360 / 360 Weight 135 lb 4 oz 134 lb 5 oz - Constitutional no acute distress - *Routine HEENT Exam Eye: Present: PERRL ENT: Present: mucous membranes moist - *Routine Respiratory Exam Present: rales (Right basilar fibrotic rales.) - *Routine Cardiovascular Exam Present: RRR - *Routine Abdominal Exam Present: soft. Absent: tenderness - *Routine Extremities Exam Absent: edema - *Routine Neurological Exam Present: alert (Much more alert.) Assessment and Plan (1) Pneumonia of both lower lobes Problem details: D/t e. Coli Current visit: Yes Status: Acute Qualifiers: Pneumonia type: due to unspecified organism Qualified Code(s): J18.9 - Pneumonia, unspecified organism Category: Medical Code(s): J18.9 - Pneumonia, unspecified organism (2) Severe sepsis Current visit: Yes Status: Acute Category: Medical Code(s): A41.9 - Sepsis, unspecified organism; R65.20 - Severe sepsis without septic shock (3) Urinary tract infection Current visit: Yes Status: Acute Category: Medical Code(s): N39.0 - Urinary tract infection, site not specified (4) Acute on chronic renal failure Current visit: Yes Status: Acute Category: Medical Code(s): N17.9 - Acute kidney failure, unspecified; N18.9 - Chronic kidney disease, unspecified (5) Type 2 diabetes mellitus Current visit: Yes Status: Acute Category: Medical Code(s): E11.9 - Type 2 diabetes mellitus without complications (6) Hypertension Current visit: Yes Status: Acute Category: Medical Code(s): I10 - Essential (primary) hypertension (7) Hyperlipidemia Current visit: Yes Status: Acute Category: Medical Code(s): E78.5 - Hyperlipidemia, unspecified (8) Presbycusis Current visit: Yes Status: Acute Category: Medical Code(s): H91.10 - Presbycusis, unspecified ear (9) History of uterine cancer Current visit: Yes Status: Acute Category: Medical Code(s): Z85.42 - Personal history of malignant neoplasm of other parts of uterus (10) History of lung cancer Current visit: Yes Status: Acute Category: Medical Code(s): Z85.118 - P ersonal history of other malignant neoplasm of bronchus and lung (11) History of breast cancer Current visit: Yes Status: Acute Category: Medical Code(s): Z85.3 - Personal history of malignant neoplasm of breast (12) Diabetic neuropathy Current visit: Yes Status: Acute Category: Medical Code(s): E11.40 - Type 2 diabetes mellitus with diabetic neuropathy, unspecified (13) DNR (do not resuscitate) Current visit: Yes Status: Acute Category: Medical Code(s): Z66 - Do not resuscitate (14) Anemia Current visit: Yes Status: Acute Category: Medical Code(s): D64.9 - Anemia, unspecified (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 coli UTI Current visit: Yes Status: Acute Category: Medical Code(s): N39.0 - Urinary tract infection, site not specified; B96.20 - Unspecified Escherichia coli [E. coli] as the cause of diseases classified elsewhere - Assessment and plan all Dx Assessment and Plan for all problems:: Discharged to [facility]. Ertapenem 1 gram IM daily for the next 4 days.
--- NOTE | 2019-08-15 09:46 | Discharge Summary ---
General - General Admission date:: 08/05/19 Discharge date: 08/15/19 HPI HPI: Ms. Monroe is an 89-year-old white female survivor of uterine cancer, lung cancer, and breast cancer. She has a history of type 2 diabetes mellitus, hypertension, hyperlipidemia. She has been seen in the office twice recently with respiratory symptoms and was initially treated with Omnicef followed by a course of Zithromax. Despite this, she has persisted with congestion, cough, and progressive weakness. She has not been eating or drinking well at home. Because of her progressive symptoms, she presented to the emergency room today. She was worked up with findings of bilateral lower lobe pneumonia, urinary tract infection, and acute on chronic renal failure with an elevated white count meeting criteria for severe sepsis. She received an IV fluid bolus along with the initial dose of IV antibiotics in the emergency room and has now been admitted for further evaluation and treatment. Hospital Course Hospital Course: The patient's initial chest x-ray showed bilateral lower lobe pneumonia. She had a head CT showing sinusitis but nothing else acute. She had an abdominal/pelvic CT showing the bilateral lower lobe pneumonia along with a possible enteritis. She was admitted and started on IV antibiotics as well as IV fluids. She did receive an IV fluid bolus in the emergency room. She was continued on some of her maintenance medications, but diuretics and metformin were held due to renal insufficiency. The patient remained very tired and weak and was short of breath with any exertion. She was not eating well. Her urine culture did come back positive for ESBL positive E. coli, which was resistant to Rocephin. The pharmacy recommended she be changed to Invanz. She had a repeat chest x-ray on 08/08/2019 which showed improving bilateral lower lobe pneumonia with small bilateral pleural effusions. Her sputum culture returned positive for ESBL positive E. coli as well. Her blood cultures were ne gative. She was continued on antibiotics and made very slow progress. She was extremely weak and slept most of the time during her admission. She was only able to eat small amounts. Her H&H did drop during admission and she was transfused with 2 units of packed red blood cells. Post hospital care was discussed with the patient's daughter and with care management and it was felt she would need skilled care placement. Physical therapy evaluation was ordered and they also felt she would need rehab at a correction facility. She had another chest x-ray on 08/11/2019 which showed interval progression of pneumonic infiltrates bilaterally more prominent on the left than the right with small bilateral effusions. She had persistent hypoxia, therfore an echo was ordered as well. By 08/14/2019, the patient was actually more alert and was responding to questions. Her lungs sounds had improved. She had another chest x-ray showing no change in her bilateral pneumonia. She continued to improve over the course of the next day and was awake and taking medications and smiling. She was in no respiratory distress and had been approved for discharge to [facility]. She will refer require 4 more days of ertapenem which will be administered IM. She is stable to be discharged to [facility] [place]. Objective Vital signs: Temp Pulse Resp BP Pulse Ox 97.7 F 80 18 156/74 H 96 08/15/19 07:55 08/15/19 07:55 08/15/19 07:55 08/15/19 07:55 08/15/19 07:55 Narrative: She is resting comfortably in bed and is aroused from sleep. She is quite hard of hearing. She is alert and oriented. Color is adequate. No respiratory distress. Sclera and conjunctive are clear. Mucous membranes are dry. Neck is supple with no adenopathy or bruits. Chest with coarse breath sounds and bibasilar rales. No wheezes. Heart is regular with a faint grade 1/6 systolic murmur. Abdomen is soft and nondistended. No unusual masses or tenderness. Extremities show no edema. KAITLYNN stockings in place. Results Labs on day of discharge: Labs from last 24 hours 08/15/19 08/14/19 08/14/19 05:48 20:12 16:36 POC Glucose 80 122 H 108 08/14/19 11:21 POC Glucose 102 DS: Diagnosis - Discharge Diagnosis (1) Pneumonia of both lower lobes Status: Acute Problem details: D/t ESBL positive e. Coli (2) Severe sepsis Status: Acute (3) Urinary tract infection Status: Acute (4) Acute on chronic renal failure Status: Acute (5) Type 2 diabetes mellitus Status: Acute (6) Hypertension Status: Acute (7) Hyperlipidemia Status: Acute (8) Presbycusis Status: Acute (9) History of uterine cancer Status: Acute (10) History of lung cancer Status: Acute (11) History of breast cancer Status: Acute (12) Diabetic neuropathy Status: Acute (13) DNR (do not resuscitate) Status: Acute (14) Anemia Status: Acute (15) Drug (multiple) resistant infection Status: Acute (16) E. coli UTI Status: Acute (17) UTI due to extended-spectrum beta lactamase (ESBL) producing Escherichia coli Status: Acute Discharge Plan - Patient Discharge Instructions Patient Instructions: DI for Escherichia Coli Infection, Anemia, DI for Pneumonia -- Adult, DI for Urinary Tract Infection (UTI), DI for Hyperkalemia, DI for Sepsis -- Adult, DI for Multiple Drug-resistant Organism (MDRO) Infection, Extended Spectrum Beta-Lactamase Infection, DI for Acute Kidney Injury - Follow up Plan Home Medications: Home Medications Medication Instructions Recorded Confirmed Type Fenofibrate 160 mg PO DAILY 08/05/19 08/05/19 History Ferrous Sulfate 325 mg PO DAILY 08/05/19 08/05/19 History Gabapentin [Gabapentin 300mg Cap] 300 mg PO BID 08/05/19 08/05/19 History Losartan Potassium 100 mg PO DAILY 08/05/19 08/05/19 History Metoprolol Succinate 50 mg PO DAILY 08/05/19 08/05/19 History Mv-Min/Iron/Folic/Calcium/Vitk 1 each PO DAILY 08/05/19 08/05/19 History [Women's Multivitamin Tablet] Omeprazole 40 mg PO DAILY 08/05/19 08/05/19 History Pravastatin Sodium [Pravachol 40mg 40 mg PO HS 08/05/19 08/05/19 History Tablet] Triamterene/Hydrochlorothiazid 1 tab PO DAILY 08/05/19 08/05/19 History [Dyazide 37.5/25mg capsule] Vitamin B Complex [B-50 Complex] 1 each PO DAILY 08/05/19 08/05/19 History Ertapenem Sodium [Invanz 1gm Vial] 0.5 gm IM Q24H #2 g 08/15/19 Rx Ipratropium/Albuterol Sulfate 3 ml IH TIDRT #90 ampul.neb 08/15/19 Rx [Duoneb 3mL neb] Metformin HCl 500 mg PO DAILY #30 tab 08/15/19 Rx Metoprolol Succinate [Toprol XL 100 mg PO DAILY #30 tab.er.24h 08/15/19 Rx 100mg tablet] Simethicone [Mylicon 80mg Chewable 160 mg PO Q4HP PRN #30 tab.chew 08/15/19 Rx Tablet] Prescriptions/Medication Reconciliation: No Action Metoprolol Succinate 50 mg PO DAILY Pravastatin Sodium [Pravachol 40mg Tablet] 40 mg PO HS Losartan Potassium 100 mg PO DAILY Triamterene/Hydrochlorothiazid [Dyazide 37.5/25mg capsule] 1 tab PO DAILY Gabapentin [Gabapentin 300mg Cap] 300 mg PO BID Fenofibrate 160 mg PO DAILY Omeprazole 40 mg PO DAILY Metformin HCl 500 mg PO BID Ferrous Sulfate 325 mg PO DAILY Vitamin B Complex [B-50 Complex] 1 each PO DAILY Mv-Min/Iron/Folic/Calcium/Vitk [Women's Multivitamin Tablet] 1 each PO DAILY - Problem Reconciliation Problems Reviewed?: Yes
== END 2019-08-15 12:29 | DRG 177 ==
LOC: ER 08:46 → 2ND 08:46 → OBSVTOIN 11:30
PROVIDERS: ADMIT Family Medicine; ATTEND Family Medicine
CPT/HCPCS: 36415; 70450; 71010; 71020; 71045; 71046; 74176; 80048; 80053; 81001; 82803; 82962; 83605; 85007; 85014; 85018; 85025; 86850; 87040; 87070; 87077; 87086; 87088; 87186; 87205; 87275; 87276; 93005; 93306; 94640; 94761; 96365; 96367; 96375; 97110; 97116; 97161; 97530; 99285; J0456; J1335; P9016

== ENCOUNTER 2019-08-26 16:55 | Inpatient (IN) ==
[2019-08-26 17:09] LABS: Basophils # 0.1 K/mm3 (0-0.2); Basophils % 1.3 % (0.1-2.0); Eosinophils # 0.1 K/mm3 (0.0-0.4); Eosinophils % 1.6 % (0.1-12.0); Hematocrit 36.2 % (37.0-47.0); Hemoglobin 11.7 g/dL (12.2-16.2); Lymphocytes # 2.4 K/mm3 (0.7-4.5); Lymphocytes % 31.8 % (10-50); Mean Corpuscular HGB Conc 32.2 g/dL (31.8-35.4); Mean Corpuscular Volume 103.4 fl (81-99); Mean Platelet Volume 9.5 fl (7.4-10.4); Monocytes # 0.3 K/mm3 (0.1-1.0); Monocytes % 4.3 % (1.7-9.3); Neutrophils # 4.6 K/mm3 (1.8-7.8); Platelet Count 93 K/mm3 (142-424); Red Cell Distribution Width 16.9 % (11.5-17.5); White Blood Count 7.6 K/mm3 (4.8-10.8)
[2019-08-26 17:16] LABS: Bilirubin,Total 0.4 mg/dl (0.2-1.3)
[2019-08-26 17:17] LABS: Albumin/Globulin Ratio 1.1 (1.1-1.8); Calcium 10.2 mg/dl (8.4-10.2); Globulin 3.5 g/dL (1.3-3.2); Total Protein,Serum 7.5 g/dl (6.3-8.2)
[2019-08-26 17:18] LABS: Anion Gap 17.1 mEq/L (5-15)
--- NOTE | 2019-08-26 17:45 | Emergency Department Note ---
ED Disposition Clinical Impression: Hyperkalemia, History of uterine cancer, History of breast cancer, History of lung cancer, Hx of fall, Acute kidney injury (nontraumatic), Acute encephalopathy, Dehydration, DNR (do not resuscitate) Acute on chronic renal failure Qualifiers: Acute renal failure type: unspecified Chronic kidney disease stage: stage 5, not on chronic dialysis Qualified Code(s): N17.9 - Acute kidney failure, unspecified Hypertension Qualifiers: Hypertension type: secondary to other renal disorders Qualified Code(s): I15.1 - Hypertension secondary to other renal disorders Disposition: Admitted as Observation Condition on Discharge: Fair Referrals: Ehsan Hall MD [Primary Care Provider] - Time of Disposition: 18:42 - Critical Care Critical Care Time: No Attestation: On 08/26/19, the high probability of a clinically significant, sudden or life threatening deterioration of the following system(s) required my full and direct attention, intervention and personal management. The time I documented below is in addition to time spent performing reported procedures but includes the following listed in this critical care notation. Medical Decision Making - [place]annon Inquiry Pt receiving controlled substance: No Vital Signs: 08/26/19 16:54 Pulse Rate [Radial] 78 Respiratory Rate 17 Blood Pressure [Right Arm] 177/69 H Blood Pressure Mean [Right Arm] 105 Blood Pressure Source [Right Arm] Manual Cuff/ Doppler Blood Pressure Position [Right Arm] Supine 02 Sat by Pulse Oximetry 96 Oxygen Delivery Method Nasal Cannula - Lab Data Lab results reviewed: Yes: I reviewed the patient's lab results. Lab Results 08/26/19 17:00: WBC 7.6, RBC 3.50 L, Hgb 11.7 L, Hct 36.2 L, MCV 103.4 H, MCH 33.3 H, MCHC 32.2, RDW 16.9, Plt Count 93 L, MPV 9.5, Neut % (Auto) 61.0, Lymph % (Auto) 31.8, [place] % (Auto) 4.3, Eos % (Auto) 1.6, Baso % (Auto) 1.3, Neut # (Auto) 4.6, Lymph # (Auto) 2.4, [place] # (Auto) 0.3, Eos # (Auto) 0.1, Baso # (Auto) 0.1 08/26/19 17:00: Sodium 139, Potassium 6.1 H*, Chloride 104, Carbon Dioxide 24, Anion Gap 17.1 H, BUN 55 H, Creatinine 4.10 H, Estimated Creat Clear 9, Estimated GFR 10 L*, Est GFR ( Amer) 12 L*, Glucose 88, Calcium 10.2, Total Bilirubin 0.4, AST 63 H, ALT 24, Alkaline Phosphatase 86, Troponin I 0.05 H, Total Protein 7.5, Albumin 4.0, Globulin 3.5 H, Albumin/Globulin Ratio 1.1 Result diagrams: 08/26/19 17:00 08/26/19 17:00 Orders (Tests/Meds): ORDERS Category Date Time Status CT abdomen pelvis wo con Stat Cat Scan 08/26/19 17:[address] cervical spine wo con Stat Cat Scan 08/26/19 16:[address] chest wo con Stat Cat Scan 08/26/19 17:[address] head/brain wo con Stat Cat Scan 08/26/19 16:57 Taken Troponin I Q3H Lab 08/26/19 20:00 Ordered Troponin I Q3H Lab 08/26/19 23:00 Ordered ECG Request by /Suzanne Stat Y 08/26/19 16:58 Ordered - CT Data CT Scan: Head Time Received: 18:10 Findings Narrative: CT of the head CT of the head is negative for any acute intracranial abnormality. No skull fracture. Posterior right parietal scalp contusion. No CT evidence of mass or intracranial hemorrhage or acute infarct. Chronic senescent changes. Cerebral atrophy. Old right cerebellar infarct, white matter microvascular ischemic changes. And atherosclerotic disease. Likely acute on chronic sinusitis this appears mildly improved compared with 08/05/2019. Persistent fluid in the right maxillary and sphenoid sinuses. No acute sinus fracture. CT of the cervical spine CT of the cervical spine reports no acute cervical spine fracture or soft significant subluxation. Multilevel degenerative disc disease, spondylosis and facet arthropathy. CT of the abdomen pelvis reports no acute visceral injury or free fluid or free air. No acute or no new fracture or dislocation in the abdomen and pelvis compared with 08/05/2019. Old bony injuries and chronic degenerative changes. - ECG Data Tracing #1 Sinus tachycardia with a heart rate of 105 bpm, normal P waves, normal NV interval, wide complex QRS pattern with left bundle branch block pattern. Normal axis. Nonspecific ST-T changes. QS pattern in V1 and V2 V3 suggestive of questionable anterior infarct. - Physician Consults Physician Consulted: Dr. Hall. Time: 18:20 Reason -: Admission Comment/Response: Discussed with Dr. Hall regarding the patient and planned to get the patient admitted to the floor for IV hydration and further management. - Reevaluation(s) Time: 18:40 Reevaluation #1: Patient has been stable throughout the course of stay in the emergency department. Plan to discuss the findings and the primary care provider and admit the patient to the floor. Fall HPI - General Chief Complaint: Fall Stated Complaint: fall Time Seen by Provider: 08/26/19 17:10 Mode of Arrival: EMS Source of Information: Patient Limitations: No Limitations Description of Symptoms (Recalled from ER Triage Doc. by RN): [facility]. Hit back of her head. No other complaints. - History of Present Illness HPI Narrative: 89 y/o female was brought to the ER by the EMS from the prison after she fell at the prison and hit her head on the back of her head. No nausea or vomiting. She complains of having pain in the back of the head. No passing out episode. She also complains of having pain in the left lower chest wall area on the lateral aspect of the chest. SHE is very hard of hearing. She is not able to give a proper history from her. Pt is DNR in her CODE status. MD complaint: fall Onset (ago): hour(s) (1-2 hours ago.) Fall from: other (Pt was trying to stand when she fell.) Fall witnessed: no Place fall occurred: prison[facility] Loss of consciousness: none Prolonged down time: no - Related Data Home Medications Medication Instructions Recorded Confirmed Fenofibrate 160 mg PO DAILY 08/05/19 08/05/19 Ferrous Sulfate 325 mg PO DAILY 08/05/19 08/05/19 Gabapentin [Gabapentin 300mg Cap] 300 mg PO BID 08/05/19 08/05/19 Losartan Potassium 100 mg PO DAILY 08/05/19 08/05/19 Mv-Min/Iron/Folic/Calcium/Vitk 1 each PO DAILY 08/05/19 08/05/19 [Women's Multivitamin Tablet] Omeprazole 40 mg PO DAILY 08/05/19 08/05/19 Pravastatin Sodium [Pravachol 40mg 40 mg PO HS 08/05/19 08/05/19 Tablet] Vitamin B Complex [B-50 Complex] 1 each PO DAILY 08/05/19 08/05/19 Previous Rx's Medication Instructions Recorded Ertapenem Sodium [Invanz 1gm Vial] 0.5 gm IM Q24H #2 g 08/15/19 Ipratropium/Albuterol Sulfate 3 ml IH TIDRT #90 ampul.neb 08/15/19 [Duoneb 3mL neb] Metformin HCl 500 mg PO DAILY #30 tab 08/15/19 Metoprolol Succinate [Toprol XL 100 mg PO DAILY #30 tab.er.24h 08/15/19 100mg tablet] Simethicone [Mylicon 80mg Chewable 160 mg PO Q4HP PRN #30 tab.chew 08/15/19 Tablet] Allergies Allergy/AdvReac Type Severity Reaction Status Date / Time No Known Allergies Allergy Verified 08/05/19 10:[address] [facility] History - Hepatitis A Screen Drug use history?: No High risk sexual behaviors?: No History of sexually transmitted infection?: No Currently employed?: No Childcare worker?: No Do you have indoor plumbing?: Yes Do you have electricity?: Yes Attestation statement:: This patient has been screened for Hepatitis A risk factors. I have reviewed the patient's past medical history: Yes Medical History: Reports:: Cancer, Diabetes Mellitus Type 2, Hypertension, Renal Insufficiency Denies:: Diabetes Mellitus Type 1 Other Medical History: Reports: Arthritis, Cataracts Laterality Cases: Right: Breast Biopsy, Mastectomy Other Surgeries: Yes: Colonoscopy, EGD, Hysterectomy-Total, Skin Cancer Excision - Social History Educational Level: Completed High School Smoking Status: Never smoker Alcohol Intake: never Occupational Status: disabled Housing: prison Household Members: children Family Hx:: Cancer, Diabetes, Other ROS Obtained: Yes other (Unable to get a proper ROS due to the clinical status of the pt. ) Physical Exam - General General appearance: alert, in no apparent distress - Head Head exam: other (Mild swelling at the posterio-parietal and occipital area.) - Eye Eye exam: Present: normal appearance, PERRL, EOMI - ENT ENT exam: Present: normal exam, normal oropharynx, mucous membranes moist, TM's normal bilaterally, normal external ear exam - Neck Neck exam: Present: normal inspection, full ROM, trachea midline, meningismus - Chest Chest inspection: Present: normal inspection, symmetric chest wall rise. Absent: tenderness - Expanded Chest Exam Breast: left: tenderness (Tenderness on the left lower chest wall area.) - Respiratory Respiratory exam: Present: normal lung sounds bilaterally, other. Absent: respiratory distress - Cardiovascular Cardiovascular exam: Present: regular rate, normal rhythm. Absent: JVD - Abdominal Exam Abdominal exam: Present: soft, normal bowel sounds. Absent: distention, tenderness, guarding - Extremities Exam Extremities exam: Present: normal inspection, full ROM, normal capillary refill. Absent: calf tenderness - Back Exam Back exam: Present: normal inspection, full ROM. Absent: tenderness - Neurological Exam Neurological exam: Present: alert, oriented X3, CN II-XII intact - Psychiatric Psychiatric exam: Present: normal affect, normal mood - Skin Skin exam: Present: warm, dry, intact, normal color
[2019-08-27 07:00] LABS: Basophils # 0.1 K/mm3 (0-0.2); Basophils % 1.1 % (0.1-2.0); Eosinophils # 0.1 K/mm3 (0.0-0.4); Eosinophils % 1.8 % (0.1-12.0); Hematocrit 30.7 % (37.0-47.0); Lymphocytes # 2.3 K/mm3 (0.7-4.5); Lymphocytes % 35.1 % (10-50); Mean Corpuscular HGB Conc 30.6 g/dL (31.8-35.4); Mean Corpuscular Volume 105.1 fl (81-99); Mean Platelet Volume 9.8 fl (7.4-10.4); Monocytes # 0.3 K/mm3 (0.1-1.0); Monocytes % 4.2 % (1.7-9.3); Neutrophils # 3.8 K/mm3 (1.8-7.8); Neutrophils % 57.8 % (37.0-80.0); Platelet Count 73 K/mm3 (142-424); Red Blood Count 2.92 M/mm3 (4.20-5.40); Red Cell Distribution Width 17.5 % (11.5-17.5); White Blood Count 6.7 K/mm3 (4.8-10.8)
[2019-08-27 07:01] LABS: Hemoglobin 9.4 g/dL (12.2-16.2)
[2019-08-27 07:05] LABS: Anion Gap 15.2 mEq/L (5-15); Calcium 9.5 mg/dl (8.4-10.2)
[2019-08-27 07:14] LABS: Microscopic, Urine URINE MICROSCOPIC (MICROSCOPIC)
[2019-08-27 07:16] LABS: Appearance,Urine CLEAR (Clear); Bilirubin,Urine Negative (Negative); Blood, Urine Negative (Negative); Color,Urine YELLOW (Yellow); Glucose,Urine (UA) Negative (Negative); Ketones,Urine Negative (Negative); Leukocyte Esterase,Urine Negative (Negative); Protein,Urine 1+ (Negative); Specific Gravity, Urine 1.015 (1.005-1.030); Urobilinogen,Urine 0.2 EU/dl (0.2)
--- NOTE | 2019-08-27 07:56 | Pharmacy Consult Notes ---
[facility] [place] Pharmacy VTE Monitoring - Patient Demographics Admission date: 08/27/19 Report Date: 08/27/19 Time: 07:56 Allergies/Adverse Reactions: Patient Allergies No Known Allergies Allergy (Verified 08/05/19 10:03) Height: 1.57 m Weight: 55.111 kg Patient Problems: Current Active Problems Acute kidney injury (nontraumatic) (Acute) Hyperkalemia (Acute) Acute on chronic renal failure (Acute) Hypertension (Acute) History of uterine cancer (Acute) History of lung cancer (Acute) History of breast cancer (Acute) DNR (do not resuscitate) (Acute) Hx of fall (Acute) Acute encephalopathy (Acute) Dehydration (Acute) - VTE Risk Labs: VTE Related Lab Results Hgb 9.4 g/dL (12.2-16.2) L D 08/27/19 06:40 Hct 30.7 % (37.0-47.0) L 08/27/19 06:40 Plt Count 73 K/mm3 (142-424) L 08/27/19 06:40 BUN 54 mg/dl (7-17) H 08/27/19 06:40 Creatinine 4.30 mg/dl (0.52-1.04) H 08/27/19 06:40 Estimated Creat Clear 8 mL/min (50-200) 08/27/19 06:40 Was VTE Risk Assessment Performed: Yes VTE Score: 11 VTE Risk Level: Moderate Risk - Prophylaxis Types of VTE Prophylaxis: TEDS Knee High (KAITLYNN HOSE ORDER PLACED) Location of Applied Device: Refused
--- NOTE | 2019-08-27 09:47 | History & Physical Report ---
*Admission Date: 08/27/19 *Chief complaint: fall at correction *History of present illness: 89 year old female patient of [facility] correction was brought to [facility] ER yesterday after falling and hitting her head. Patient has been at [facility] for a few weeks due to a recent hospitalization for UTI and severe sepsis. Patient states she had been working with the therapist at the correction and had been feeling better. She states she wanted to get out of bed but she did not ask for any help from the correction staff and during the process of getting up she fell. Patient states she had some pain in her head and on her chest wall after falling but no other complaints [facility] History Medical History: Reports:: Cancer (Breast, Lung, Uterine, Skin), Diabetes Mellitus Type 2, Hyperlipidemia, Hypertension, Renal Insufficiency, Urinary Tract Infection Denies:: Diabetes Mellitus Type 1 *Have you ever received a pneumonia vaccine?: Yes (per medical record) *Have you received a flu vaccine this season?: Yes (per medical record) Other Medical History: Reports: Anemia, Arthritis, Cataracts, Other (hard of hearing, recent UTI with Sepsis) Laterality Cases: Right: Breast Biopsy, Mastectomy Other Surgeries: Yes: Colonoscopy, EGD, Hysterectomy-Total, Skin Cancer Excision - *Social History Educational Level: Completed High School Smoking Status: Never smoker Alcohol Intake: never *Occupational Status:: retired Housing: assisted living facility Household Members: children *Travel in the last 8 weeks: None Family Hx:: Cancer, Diabetes Review of Systems - Constitutional Reports fatigue, Denies chills, Denies fever(s) - Eyes Denies change in vision - ENT Denies change in voice, Denies sore throat - *Cardiovascular Denies leg swelling - *Respiratory Denies cough - *Gastrointestinal Denies abdominal pain - *Genitourinary Denies painful urination - *Musculoskeletal Denies joint pain - Integumentary/Breasts Denies rash - *Neurologic Denies dizziness - Psychiatric Denies irritability Meds Home Medications Medication Instructions Recorded Confirmed Type Fenofibrate 160 mg PO DAILY 08/05/19 08/26/19 History Ferrous Sulfate 325 mg PO DAILY 08/05/19 08/26/19 History Gabapentin [Gabapentin 300mg Cap] 300 mg PO BID 08/05/19 08/26/19 History Losartan Potassium 100 mg PO DAILY 08/05/19 08/26/19 History Mv-Min/Iron/Folic/Calcium/Vitk 1 each PO DAILY 08/05/19 08/26/19 History [Women's Multivitamin Tablet] Omeprazole 20 mg PO DAILY 08/05/19 08/26/19 History Pravastatin Sodium [Pravachol 40mg 40 mg PO HS 08/05/19 08/26/19 History Tablet] Vitamin B Complex [B-50 Complex] 1 each PO DAILY 08/05/19 08/26/19 History Metformin HCl 500 mg PO DAILY #30 tab 08/15/19 08/26/19 Rx Ipratropium/Albuterol Sulfate 3 ml IH TIDRT 08/26/19 08/26/19 History [Duoneb 3mL neb] Acetaminophen [Pain Reliever] 100 mg PO Q6HP PRN 08/27/19 08/27/19 History Metoprolol Succinate 50 mg PO DAILY 08/27/19 08/27/19 History Simethicone [Gas Relief 80] 80 mg PO Q4HP PRN 08/27/19 08/27/19 History hydroCHLOROthiazide 12.5 mg PO DAILY 08/27/19 08/27/19 History [Hydrochlorothiazide] Allergies Allergy/AdvReac Type Severity Reaction Status Date / Time No Known Allergies Allergy Verified 08/05/19 10:03 Exam Vital signs and Labs for Last 24 Hours: Temp Pulse Resp BP Pulse Ox 97.9 F 109 H 20 141/57 H 99 08/27/19 08:00 08/27/19 08:00 08/27/19 08:00 08/27/19 08:00 08/27/19 08:00 Laboratory Results - last 24 hr 08/26/19 17:00: WBC 7.6, RBC 3.50 L, Hgb 11.7 L, Hct 36.2 L, MCV 103.4 H, MCH 33.3 H, MCHC 32.2, RDW 16.9, Plt Count 93 L, MPV 9.5, Neut % (Auto) 61.0, Lymph % (Auto) 31.8, [place] % (Auto) 4.3, Eos % (Auto) 1.6, Baso % (Auto) 1.3, Neut # (Auto) 4.6, Lymph # (Auto) 2.4, [place] # (Auto) 0.3, Eos # (Auto) 0.1, Baso # (Auto) 0.1 08/26/19 17:00: Sodium 139, Potassium 6.1 H*, Chloride 104, Carbon Dioxide 24, Anion Gap 17.1 H, BUN 55 H, Creatinine 4.10 H, Estimated Creat Clear 9, Estimated GFR 10 L*, Est GFR ( Amer) 12 L*, Glucose 88, Calcium 10.2, Total Bilirubin 0.4, AST 63 H, ALT 24, Alkaline Phosphatase 86, Troponin I 0.05 H, Total Protein 7.5, Albumin 4.0, Globulin 3.5 H, Albumin/Globulin Ratio 1.1 08/26/19 19:10: Lactate 1.5 08/27/19 00:46: POC Glucose 85 08/27/19 06:06: POC Glucose 102 08/27/19 06:40: WBC 6.7, RBC 2.92 L, Hgb 9.4 L D, Hct 30.7 L, MCV 105.1 H, MCH 32.1 H, MCHC 30.6 L, RDW 17.5, Plt Count 73 L, MPV 9.8, Neut % (Auto) 57.8, Lymph % (Auto) 35.1, [place] % (Auto) 4.2, Eos % (Auto) 1.8, Baso % (Auto) 1.1, Neut # (Auto) 3.8, Lymph # (Auto) 2.3, [place] # (Auto) 0.3, Eos # (Auto) 0.1, Baso # (Auto) 0.1 08/27/19 06:40: Sodium 139, Potassium 5.2 H, Chloride 107, Carbon Dioxide 22, Anion Gap 15.2 H, BUN 54 H, Creatinine 4.30 H, Estimated Creat Clear 8, Estimated GFR 10 L*, Est GFR ( Amer) 12 L*, Glucose 91, Calcium 9.5 08/27/19 07:05: Urine Color Yellow, Urine Appearance Clear, Urine pH 6.0, Ur Specific [place] 1.015, Urine Protein 1+, Urine Glucose (UA) Negative, Urine Ketones Negative, Urine Blood Negative, Urine Nitrate Negative, Urine Bilirubin Negative, Urine Urobilinogen 0.2, Ur Leukocyte Esterase Negative, Urine WBC 3-5, Ur Squamous Epith Cells 3-5, Ur Renal Epithelial Cell 3-5 Vital Signs - 24 hr 08/26/19 16:54 08/26/19 18:51 08/26/19 19:10 Temperature 98.2 F 97.6 F Pulse Rate 79 Pulse Rate [Radial] 78 104 H Respiratory Rate 17 16 20 Blood Pressure 128/79 Blood Pressure [Right Arm] 177/69 H 163/66 H 02 Sat by Pulse Oximetry 96 99 08/26/19 22:33 08/27/19 03:51 08/27/19 05:09 Temperature 97.6 F Pulse Rate 81 Pulse Rate [Radial] 89 Respiratory Rate 17 Blood Pressure Blood Pressure [Right Arm] 134/55 L 02 Sat by Pulse Oximetry 98 95 08/27/19 08:00 Temperature 97.9 F Pulse Rate Pulse Rate [Radial] 109 H Respiratory Rate 20 Blood Pressure Blood Pressure [Right Arm] 141/57 H 02 Sat by Pulse Oximetry 99 I & O for Last 24 hours: Intake & Output 08/24/19 08/25/19 08/26/19 08/27/19 23:59 23:59 23:59 23:59 Intake Total 1199 / 1199 Output Total 400 / 400 Balance 799 / 799 Weight 121 lb 8 oz 121 lb 7.983 oz - Constitutional no acute distress (hard of hearing) - *Routine HEENT Exam Head: Present: normocephalic (on minimal posterior scalp edema) Eye: Present: EOMI, PERRL ENT: Present: mucous membranes moist - *Routine Neck Exam Present: supple. Absent: lymphadenopathy - *Routine Respiratory Exam Present: CTA bilaterally - *Routine Cardiovascular Exam Present: RRR - *Routine Abdominal Exam Present: soft, normoactive bowel sounds. Absent: tenderness - *Routine Extremities Exam Absent: cyanosis, clubbing, edema - *Routine Skin Exam Present: warm. Absent: rash - *Routine Neurological Exam Present: alert, oriented X3 H&P: Result - Impressions Imaging reports from admission evaluation in ER reviewed Assessment and Plan (1) Fall at correction Current visit: Yes Status: Acute Category: Medical Code(s): W19.XXXA - Unspecified fall, initial encounter; Y92.129 - Unspecified place in correction as the place of occurrence of the external cause (2) Closed head injury Current visit: Yes Status: Acute Category: Medical Code(s): S09.90XA - Unspecified injury of head, initial encounter (3) Acute renal failure (ARF) Current visit: Yes Status: Acute Category: Medical Code(s): N17.9 - Acute kidney failure, unspecified (4) CKD (chronic kidney disease) stage 4, GFR 15-29 ml/min Current visit: Yes Status: Acute Category: Medical Code(s): N18.4 - Chronic kidney disease, stage 4 (severe) (5) Hyperkalemia Current visit: Yes Status: Acute Category: Medical Code(s): E87.5 - Hyperkalemia (6) Acute on chronic renal failure Current visit: Yes Status: Acute Qualifiers: Acute renal failure type: unspecified Chronic kidney disease stage: stage 5, not on chronic dialysis Qualified Code(s): N17.9 - Acute kidney failure, unspecified; N18.5 - Chronic kidney disease, stage 5 Category: Medical Code(s): N17.9 - Acute kidney failure, unspecified; N18.9 - Chronic kidney disease, unspecified (7) Type 2 diabetes mellitus Current visit: No Status: Acute Category: Medical Code(s): E11.9 - Type 2 diabetes mellitus without complications (8) Hypertension Current visit: Yes Status: Acute Qualifiers: Hypertension type: secondary to other renal disorders Qualified Code(s): I15.1 - Hypertension secondary to other renal disorders; N28.89 - Other specified disorders of kidney and ureter Category: Medical Code(s): I10 - Essential (primary) hypertension (9) Hyperlipidemia Current visit: No Status: Acute Category: Medical Code(s): E78.5 - Hyperlipidemia, unspecified (10) Presbycusis Current visit: No Status: Acute Category: Medical Code(s): H91.10 - Presbycusis, unspecified ear (11) History of uterine cancer Current visit: Yes Status: Acute Category: Medical Code(s): Z85.42 - Personal history of malignant neoplasm of other parts of uterus (12) History of lung cancer Current visit: Yes Status: Acute Category: Medical Code(s): Z85.118 - Personal history of other malignant neoplasm of bronchus and lung (13) History of breast cancer Current visit: Yes Status: Acute Category: Medical Code(s): Z85.3 - Personal history of malignant neoplasm of breast (14) Diabetic neuropathy Current visit: No Status: Acute Category: Medical Code(s): E11.40 - Type 2 diabetes mellitus with diabetic neuropathy, unspecified (15) Anemia Current visit: No Status: Acute Category: Medical Code(s): D64.9 - Anemia, unspecified - Assessment and plan all Dx Assessment and Plan for all problems:: Patient admitted to [facility] for for further evaluation and management. Plan to use IVF to treat ARF, antibiotics were started due to a possible pneumonia, will continue those for now, even though clinic picture is not convincing for pne umonia. Spoke to patient's daughter about her condition. Patient is anxious to be discharged home and not back to a SNF. Recheck labs in the morning.
[2019-08-28 06:12] LABS: Basophils # 0.1 K/mm3 (0-0.2); Basophils % 1.2 % (0.1-2.0); Eosinophils # 0.1 K/mm3 (0.0-0.4); Eosinophils % 1.3 % (0.1-12.0); Hematocrit 30.8 % (37.0-47.0); Hemoglobin 9.7 g/dL (12.2-16.2); Lymphocytes # 2.1 K/mm3 (0.7-4.5); Lymphocytes % 30.5 % (10-50); Mean Corpuscular HGB Conc 31.5 g/dL (31.8-35.4); Mean Corpuscular Volume 104.2 fl (81-99); Mean Platelet Volume 9.3 fl (7.4-10.4); Monocytes # 0.3 K/mm3 (0.1-1.0); Monocytes % 4.8 % (1.7-9.3); Neutrophils # 4.3 K/mm3 (1.8-7.8); Neutrophils % 62.2 % (37.0-80.0); Platelet Count 68 K/mm3 (142-424); Red Blood Count 2.96 M/mm3 (4.20-5.40); Red Cell Distribution Width 17.5 % (11.5-17.5); White Blood Count 6.9 K/mm3 (4.8-10.8)
[2019-08-28 06:22] LABS: Anion Gap 15.2 mEq/L (5-15); Calcium 9.6 mg/dl (8.4-10.2)
--- NOTE | 2019-08-28 09:20 | Progress Note ---
Internal Medicine - PN: Subj *Date: 08/28/19 *Time: 09:17 Interval history: Patient did not rest well last night at all. She only says she wants to go home. Patient pulled out another IV last night. Exam Vital signs and Labs for Last 24 Hours: Temp Pulse Resp BP Pulse Ox 99.1 F 90 20 117/44 L 99 08/28/19 07:38 08/28/19 07:38 08/28/19 07:38 08/28/19 07:38 08/28/19 07:38 Laboratory Results - last 24 hr 08/28/19 05:52: WBC 6.9, RBC 2.96 L, Hgb 9.7 L, Hct 30.8 L, MCV 104.2 H, MCH 32.8 H, MCHC 31.5 L, RDW 17.5, Plt Count 68 L, MPV 9.3, Neut % (Auto) 62.2, Lymph % (Auto) 30.5, [place] % (Auto) 4.8, Eos % (Auto) 1.3, Baso % (Auto) 1.2, Neut # (Auto) 4.3, Lymph # (Auto) 2.1, [place] # (Auto) 0.3, Eos # (Auto) 0.1, Baso # (Auto) 0.1 08/28/19 05:52: Sodium 136, Potassium 5.2 H, Chloride 105, Carbon Dioxide 21 L, Anion Gap 15.2 H, BUN 54 H, Creatinine 4.40 H, Estimated Creat Clear 8, Estimated GFR 9 L*, Est GFR ( Amer) 11 L*, Glucose 82, Calcium 9.6 Vital Signs - 24 hr 08/27/19 14:36 08/27/19 15:38 08/27/19 18:00 Temperature 98.5 F Pulse Rate 94 H Pulse Rate [Radial] 116 H Respiratory Rate 20 Blood Pressure [Right Arm] 154/64 H 02 Sat by Pulse Oximetry 96 95 91 L 08/27/19 19:14 08/27/19 22:12 08/27/19 22:25 Temperature 98.9 F Pulse Rate 82 81 Pulse Rate [Radial] 94 H Respiratory Rate 18 Blood Pressure [Right Arm] 129/54 L 02 Sat by Pulse Oximetry 96 08/28/19 02:14 08/28/19 02:25 08/28/19 04:13 Temperature 98.9 F Pulse Rate 83 81 Pulse Rate [Radial] 89 Respiratory Rate 17 Blood Pressure [Right Arm] 121/55 L 02 Sat by Pulse Oximetry 94 L 08/28/19 06:48 08/28/19 07:38 Temperature 99.1 F Pulse Rate 84 Pulse Rate [Radial] 90 Respiratory Rate 20 Blood Pressure [Right Arm] 117/44 L 02 Sat by Pulse Oximetry 97 99 I & O for Last 24 hours: Intake & Output 08/25/19 08/26/19 08/27/19 08/28/19 23:59 23:59 23:59 23:59 Intake Total 3198 / 3418 220 / 220 Output Total 1500 / 1500 Balance 1698 / 1918 220 / 220 Weight 121 lb 8 oz 121 lb 7.983 oz - Constitutional Comments: Will rest quietly for a short time but gets agitated with any stimulus - *Routine Respiratory Exam Present: rhonchi (bilateral). Absent: wheezes - *Routine Cardiovascular Exam Present: RRR - *Routine Extremities Exam Absent: edema Assessment and Plan (1) Fall at care home Current visit: Yes Status: Acute Category: Medical Code(s): W19.XXXA - Unspecified fall, initial encounter; Y92.129 - Unspecified place in care home as the place of occurrence of the external cause (2) Closed head injury Current visit: Yes Status: Acute Category: Medical Code(s): S09.90XA - Unspecified injury of head, initial encounter (3) Acute renal failure (ARF) Current visit: Yes Status: Acute Category: Medical Code(s): N17.9 - Acute kidney failure, unspecified (4) CKD (chronic kidney disease) stage 4, GFR 15-29 ml/min Current visit: Yes Status: Acute Category: Medical Code(s): N18.4 - Chronic kidney disease, stage 4 (severe) (5) Hyperkalemia Current visit: Yes Status: Acute Category: Medical Code(s): E87.5 - Hyperkalemia (6) Acute on chronic renal failure Current visit: Yes Status: Acute Qualifiers: Acute renal failure type: unspecified Chronic kidney disease stage: stage 5, not on chronic dialysis Qualified Code(s): N17.9 - Acute kidney failure, unspecified; N18.5 - Chronic kidney disease, stage 5 Category: Medical Code(s): N17.9 - Acute kidney failure, unspecified; N18.9 - Chronic kidney disease, unspecified (7) Type 2 diabetes mellitus Current visit: No Status: Acute Category: Medical Code(s): E11.9 - Type 2 diabetes mellitus without complications (8) Hypertension Current visit: Yes Status: Acute Qualifiers: Hypertension type: secondary to other renal disorders Qualified Code(s): I15.1 - Hypertension secondary to other renal disorders; N28.89 - Other specified disorders of kidney and ureter Category: Medical Code(s): I10 - Essential (primary) hypertension (9) Hyperlipidemia Current visit: No Status: Acute Category: Medical Code(s): E78.5 - Hyperlipidemia, unspecified (10) Presbycusis Current visit: No Status: Acute Category: Medical Code(s): H91.10 - Presbycusis, unspecified ear (11) History of uterine cancer Current visit: Yes Status: Acute Category: Medical Code(s): Z85.42 - Personal history of malignant neoplasm of other parts of uterus (12) History of lung cancer Current visit: Yes Status: Acute Category: Medical Code(s): Z85.118 - Personal history of other malignant neoplasm of bronchus and lung (13) History of breast cancer Current visit: Yes Status: Acute Category: Medical Code(s): Z85.3 - Personal history of malignant neoplasm of breast (14) Diabetic neuropathy Current visit: No Status: Acute Category: Medical Code(s): E11.40 - Type 2 diabetes mellitus with diabetic neuropathy, unspecified (15) Anemia Current visit: No Status: Acute Category: Medical Code(s): D64.9 - Anemia, unspecified - Assessment and plan all Dx Assessment and Plan for all problems:: Spoke to patient's daughter by phone, discussed decline in renal function. She states patient would not want to seek dialysis treatment. Continue supportive care at this time.
--- NOTE | 2019-08-28 16:15 | Electrocardiograph Report ---
APPROVED REPORT Exam: Resting ECG HR:105 bpm ECG Measurements Heart Rate 105 AXES KS 150 P 46 QRSd 104 QRS 22 QT 358 T50 QTc 473 <Conclusion> Sinus tachycardia Cannot rule out Anterior infarct, age undetermined Abnormal ECG Electronically signed by : Abdias Schulte, 08/28/2019 16:14:39
[2019-08-29 06:17] LABS: Basophils # 0.1 K/mm3 (0-0.2); Basophils % 1.4 % (0.1-2.0); Eosinophils # 0.2 K/mm3 (0.0-0.4); Eosinophils % 3.1 % (0.1-12.0); Hematocrit 29.3 % (37.0-47.0); Lymphocytes # 2.4 K/mm3 (0.7-4.5); Lymphocytes % 36.3 % (10-50); Mean Corpuscular HGB Conc 30.7 g/dL (31.8-35.4); Mean Corpuscular Volume 106.2 fl (81-99); Monocytes # 0.3 K/mm3 (0.1-1.0); Neutrophils # 3.6 K/mm3 (1.8-7.8); Neutrophils % 54.2 % (37.0-80.0); Platelet Count 59 K/mm3 (142-424); Red Blood Count 2.76 M/mm3 (4.20-5.40); Red Cell Distribution Width 17.4 % (11.5-17.5); White Blood Count 6.6 K/mm3 (4.8-10.8)
[2019-08-29 07:04] LABS: Anion Gap 11.4 mEq/L (5-15); Calcium 8.7 mg/dl (8.4-10.2)
--- NOTE | 2019-08-29 08:01 | Progress Note ---
Internal Medicine - PN: Subj *Date: 08/29/19 *Time: 08:01 Exam Vital signs and Labs for Last 24 Hours: Temp Pulse Resp BP Pulse Ox 98.4 F 98 H 18 143/62 H 97 08/29/19 07:48 08/29/19 07:48 08/29/19 07:48 08/29/19 07:48 08/29/19 07:48 Laboratory Results - last 24 hr 08/29/19 05:50: WBC 6.6, RBC 2.76 L, Hgb 9.0 L, Hct 29.3 L, MCV 106.2 H, MCH 32.5 H, MCHC 30.7 L, RDW 17.4, Plt Count 59 L, MPV 10.0, Neut % (Auto) 54.2, Lymph % (Auto) 36.3, [place] % (Auto) 5.0, Eos % (Auto) 3.1, Baso % (Auto) 1.4, Neut # (Auto) 3.6, Lymph # (Auto) 2.4, [place] # (Auto) 0.3, Eos # (Auto) 0.2, Baso # (Auto) 0.1 08/29/19 05:50: Sodium 135 L, Potassium 5.4 H, Chloride 108 H, Carbon Dioxide 21 L, Anion Gap 11.4, BUN 48 H, Creatinine 4.30 H, Estimated Creat Clear 9, Estimated GFR 10 L*, Est GFR ( Amer) 12 L*, Glucose 95, Calcium 8.7 I & O for Last 24 hours: Intake & Output 08/26/19 08/27/19 08/28/19 08/29/19 23:59 23:59 23:59 23:59 Intake Total 3198 / 3418 460 / 460 480 / 480 Output Total 1500 / 1500 200 / 200 350 / 350 Balance 1698 / 1918 260 / 260 130 / 130 Weight 55.111 kg 55.111 kg 55 kg 58.627 kg Microbiology Reports for the Last 24 Hours: Microbiology 08/27/19 00:15 Blood Blood Culture - Preliminary NO GROWTH AFTER 48 HOURS 08/27/19 00:15 Blood Blood Culture - Preliminary NO GROWTH AFTER 48 HOURS Assessment and Plan (1) Fall at snf Current visit: Yes Status: Acute Category: Medical Code(s): W19.XXXA - Unspecified fall, initial encounter; Y92.129 - Unspecified place in snf as the place of occurrence of the external cause (2) Closed head injury Current visit: Yes Status: Acute Category: Medical Code(s): S09.90XA - Unspecified injury of head, initial encounter (3) Acute renal failure (ARF) Current visit: Yes Status: Acute Category: Medical Code(s): N17.9 - Acute kidney failure, unspecified (4) CKD (chronic kidney disease) stage 4, GFR 15-29 ml/min Current visit: Yes Status: Acute Category: Medical Code(s): N18.4 - Chronic kidney disease, stage 4 (severe) (5) Hyperkalemia Current visit: Yes Status: Acute Category: Medical Code(s): E87.5 - Hyperkalemia (6) Acute on chronic renal failure Current visit: Yes Status: Acute Qualifiers: Acute renal failure type: unspecified Chronic kidney disease stage: stage 5, not on chronic dialysis Qualified Code(s): N17.9 - Acute kidney failure, unspecified; N18.5 - Chronic kidney disease, stage 5 Category: Medical Code(s): N17.9 - Acute kidney failure, unspecified; N18.9 - Chronic kidney disease, unspecified (7) Type 2 diabetes mellitus Current visit: No Status: Acute Category: Medical Code(s): E11.9 - Type 2 diabetes mellitus without complications (8) Hypertension Current visit: Yes Status: Acute Qualifiers: Hypertension type: secondary to other renal disorders Qualified Code(s): I15.1 - Hypertension secondary to other renal disorders; N28.89 - Other specified disorders of kidney and ureter Category: Medical Code(s): I10 - Essential (primary) hypertension (9) Hyperlipidemia Current visit: No Status: Acute Category: Medical Code(s): E78.5 - Hyperlipidemia, unspecified (10) Presbycusis Current visit: No Status: Acute Category: Medical Code(s): H91.10 - Presbycusis, unspecified ear (11) History of uterine cancer Current visit: Yes Status: Acute Category: Medical Code(s): Z85.42 - Personal history of malignant neoplasm of other parts of uterus (12) History of lung cancer Current visit: Yes Status: Acute Category: Medical Code(s): Z85.118 - Personal history of other malignant neoplasm of bronchus and lung (13) History of breast cancer Current visit: Yes Status: Acute Category: Medical Code(s): Z85.3 - Personal history of malignant neoplasm of breast (14) Diabetic neuropathy Current visit: No Status: Acute Category: Medical Code(s): E11.40 - Type 2 diabetes mellitus with diabetic neuropathy, unspecified (15) Anemia Current visit: No Status: Acute Category: Medical Code(s): D64.9 - Anemia, unspecified The patient's infection will respond to the chosen ABx?: Yes Is the patient receiving the right drug, dose, and route?: Yes Could a more targeted ABx be ordered?: No
--- NOTE | 2019-08-29 08:33 | Progress Note ---
<Jaz Sams - Last Filed: 08/29/19 08:30> Internal Medicine - PN: Subj *Date: 08/29/19 *Time: 08:30 Interval history: Patient states she feels better. Some shortness of breath. Denies chest pain and shortness of breath. She states she did sleep last night. She was hungry and ate all of her breakfast. Lab work this morning reveals a hemoglobin of 9 hematocrit of 29.3 with blood chemistry showing sodium of 135, potassium of 5.4; BUN is 48 and creatinine is about the same at 4.3 Exam Vital signs and Labs for Last 24 Hours: Temp Pulse Resp BP Pulse Ox 98.4 F 98 H 18 143/62 H 97 08/29/19 07:48 08/29/19 07:48 08/29/19 07:48 08/29/19 07:48 08/29/19 07:48 Laboratory Results - last 24 hr 08/29/19 05:50: WBC 6.6, RBC 2.76 L, Hgb 9.0 L, Hct 29.3 L, MCV 106.2 H, MCH 32.5 H, MCHC 30.7 L, RDW 17.4, Plt Count 59 L, MPV 10.0, Neut % (Auto) 54.2, Lymph % (Auto) 36.3, [place] % (Auto) 5.0, Eos % (Auto) 3.1, Baso % (Auto) 1.4, Neut # (Auto) 3.6, Lymph # (Auto) 2.4, [place] # (Auto) 0.3, Eos # (Auto) 0.2, Baso # (Auto) 0.1 08/29/19 05:50: Sodium 135 L, Potassium 5.4 H, Chloride 108 H, Carbon Dioxide 21 L, Anion Gap 11.4, BUN 48 H, Creatinine 4.30 H, Estimated Creat Clear 9, Estimated GFR 10 L*, Est GFR ( Amer) 12 L*, Glucose 95, Calcium 8.7 I & O for Last 24 hours: Intake & Output 08/26/19 08/27/19 08/28/19 08/29/19 11:59 11:59 11:59 11:59 Intake Total 1199 / 1199 2219 / 2219 720 / 720 Output Total 400 / 400 1100 / 1100 550 / 550 Balance 799 / 799 1119 / 1119 170 / 170 Weight 121 lb 7.983 oz 129 lb 4 oz Microbiology Reports for the Last 24 Hours: Microbiology 08/27/19 00:15 Blood Blood Culture - Preliminary NO GROWTH AFTER 48 HOURS 08/27/19 00:15 Blood Blood Culture - Preliminary NO GROWTH AFTER 48 HOURS - Constitutional no acute distress Comments: Sitting up in chair at bedside. Has completed all of her breakfast. Appears comfortable. - *Routine Respiratory Exam Present: crackles (Bilateral) - *Routine Cardiovascular Exam Present: RRR, murmur - *Routine Abdominal Exam Present: soft, normoactive bowel sounds. Absent: tenderness, distended - *Routine Extremities Exam Absent: edema, calf tenderness - *Routine Neurological Exam Present: alert, oriented X3 Extremely hard of hearing Assessment and Plan (1) Fall at correction Current visit: Yes Status: Acute Category: Medical Code(s): W19.XXXA - Unspecified fall, initial encounter; Y92.129 - Unspecified place in correction as the place of occurrence of the external cause (2) Closed head injury Current visit: Yes Status: Acute Category: Medical Code(s): S09.90XA - Unspecified injury of head, initial encounter (3) Acute renal failure (ARF) Current visit: Yes Status: Acute Category: Medical Code(s): N17.9 - Acute kidney failure, unspecified (4) CKD (chronic kidney disease) stage 4, GFR 15-29 ml/min Current visit: Yes Status: Acute Category: Medical Code(s): N18.4 - Chronic kidney disease, stage 4 (severe) (5) Hyperkalemia Current visit: Yes Status: Acute Category: Medical Code(s): E87.5 - Hyperkalemia (6) Acute on chronic renal failure Current visit: Yes Status: Acute Qualifiers: Acute renal failure type: unspecified Chronic kidney disease stage: stage 5, not on chronic dialysis Qualified Code(s): N17.9 - Acute kidney failure, unspecified; N18.5 - Chronic kidney disease, stage 5 Category: Medical Code(s): N17.9 - Acute kidney failure, unspecified; N18.9 - Chronic kidney disease, unspecified (7) Type 2 diabetes mellitus Current visit: No Status: Acute Category: Medical Code(s): E11.9 - Type 2 diabetes mellitus without complications (8) Hypertension Current visit: Yes Status: Acute Qualifiers: Hypertension type: secondary to other renal disorders Qualified Code(s): I15.1 - Hypertension secondary to other renal disorders; N28.89 - Other specified disorders of kidney and ureter Category: Medical Code(s): I10 - Essential (primary) hypertension (9) Hyperlipidemia Current visit: No Status: Acute Category: Medical Code(s): E78.5 - Hyperlipidemia, unspecified (10) Presbycusis Current visit: No Status: Acute Category: Medical Code(s): H91.10 - Presbycusis, unspecified ear (11) History of uterine cancer Current visit: Yes Status: Acute Category: Medical Code(s): Z85.42 - Personal history of malignant neoplasm of other parts of uterus (12) History of lung cancer Current visit: Yes Status: Acute Category: Medical Code(s): Z85.118 - Personal history of other malignant neoplasm of bronchus and lung (13) History of breast cancer Current visit: Yes Status: Acute Category: Medical Code(s): Z85.3 - Personal history of malignant neoplasm of breast (14) Diabetic neuropathy Current visit: No Status: Acute Category: Medical Code(s): E11.40 - Type 2 diabetes mellitus with diabetic neuropathy, unspecified (15) Anemia Current visit: No Status: Acute Category: Medical Code(s): D64.9 - Anemia, unspecified - Assessment and plan all Dx Assessment and Plan for all problems:: Continue current care <Ehsan Hall - Last Filed: 08/29/19 09:47> Internal Medicine - PN: Subj *Date: 08/29/19 *Time: 09:45 Exam Vital signs and Labs for Last 24 Hours: Temp Pulse Resp BP Pulse Ox 98.4 F 98 H 18 143/62 H 97 08/29/19 07:48 08/29/19 07:48 08/29/19 07:48 08/29/19 07:48 08/29/19 07:48 Laboratory Results - last 24 hr 08/29/19 05:50: WBC 6.6, RBC 2.76 L, Hgb 9.0 L, Hct 29.3 L, MCV 106.2 H, MCH 32.5 H, MCHC 30.7 L, RDW 17.4, Plt Count 59 L, MPV 10.0, Neut % (Auto) 54.2, Lymph % (Auto) 36.3, [place] % (Auto) 5.0, Eos % (Auto) 3.1, Baso % (Auto) 1.4, Neut # (Auto) 3.6, Lymph # (Auto) 2.4, [place] # (Auto) 0.3, Eos # (Auto) 0.2, Baso # (Auto) 0.1 08/29/19 05:50: Sodium 135 L, Potassium 5.4 H, Chloride 108 H, Carbon Dioxide 21 L, Anion Gap 11.4, BUN 48 H, Creatinine 4.30 H, Estimated Creat Clear 9, Estimated GFR 10 L*, Est GFR ( Amer) 12 L*, Glucose 95, Calcium 8.7 I & O for Last 24 hours: Intake & Output 08/26/19 08/27/19 08/28/19 08/29/19 23:59 23:59 23:59 23:59 Intake Total 3198 / 3418 460 / 460 480 / 480 Output Total 1500 / 1500 200 / 200 350 / 350 Balance 1698 / 1918 260 / 260 130 / 130 Weight 121 lb 8 oz 121 lb 7.983 oz 121 lb 4.068 oz 129 lb 4 oz Microbiology Reports for the Last 24 Hours: Microbiology 08/27/19 00:15 Blood Blood Culture - Preliminary NO GROWTH AFTER 48 HOURS 08/27/19 00:15 Blood Blood Culture - Preliminary NO GROWTH AFTER 48 HOURS Assessment and Plan (1) Fall at correction Current visit: Yes Status: Acute Category: Medical Code(s): W19.XXXA - Unspecified fall, initial encounter; Y92.129 - Unspecified place in correction as the place of occurrence of the external cause (2) Closed head injury Current visit: Yes Status: Acute Category: Medical Code(s): S09.90XA - Unspecified injury of head, initial encounter (3) Acute renal failure (ARF) Current visit: Yes Status: Acute Category: Medical Code(s): N17.9 - Acute kidney failure, unspecified (4) CKD (chronic kidney disease) stage 4, GFR 15-29 ml/min Current visit: Yes Status: Acute Category: Medical Code(s): N18.4 - Chronic kidney disease, stage 4 (severe) (5) Hyperkalemia Current visit: Yes Status: Acute Category: Medical Code(s): E87.5 - Hyperkalemia (6) Acute on chronic renal failure Current visit: Yes Status: Acute Qualifiers: Acute renal failure type: unspecified Chronic kidney disease stage: stage 5, not on chronic dialysis Qualified Code(s): N17.9 - Acute kidney failure, unspecified; N18.5 - Chronic kidney disease, stage 5 Category: Medical Code(s): N17.9 - Acute kidney failure, unspecified; N18.9 - Chronic kidney disease, unspecified (7) Type 2 diabetes mellitus Current visit: No Status: Acute Category: Medical Code(s): E11.9 - Type 2 diabetes mellitus without complications (8) Hypertension Current visit: Yes Status: Acute Qualifiers: Hypertension type: secondary to other renal disorders Qualified Code(s): I15.1 - Hypertension secondary to other renal disorders; N28.89 - Other specified disorders of kidney and ureter Category: Medical Code(s): I10 - Essential (primary) hypertension (9) Hyperlipidemia Current visit: No Status: Acute Category: Medical Code(s): E78.5 - Hyperlipidemia, unspecified (10) Presbycusis Current visit: No Status: Acute Category: Medical Code(s): H91.10 - Presbycusis, unspecified ear (11) History of uterine cancer Current visit: Yes Status: Acute Category: Medical Code(s): Z85.42 - Personal history of malignant neoplasm of other parts of uterus (12) History of lung cancer Current visit: Yes Status: Acute Category: Medical Code(s): Z85.118 - Personal history of other malignant neoplasm of bronchus and lung (13) History of breast cancer Current visit: Yes Status: Acute Category: Medical Code(s): Z85.3 - Personal history of malignant neoplasm of breast (14) Diabetic neuropathy Current visit: No Status: Acute Category: Medical Code(s): E11.40 - Type 2 diabetes mellitus with diabetic neuropathy, unspecified (15) Anemia Current visit: No Status: Acute Category: Medical Code(s): D64.9 - Anemia, unspecified - Assessment and plan all Dx Assessment and Plan for all problems:: Saw patient, agree with above note. She is more alert today and states she wants to go home. Discussed plan of care with patient's daughter and with care management. Hospice care at home seems most appropriate at this time.
--- NOTE | 2019-08-30 15:51 | Discharge Summary ---
General - General Admission date:: 08/26/19 Discharge date: 08/29/19 HPI HPI: 89 year old female patient of [facility] was brought to [facility] ER yesterday after falling and hitting her head. Patient has been at [facility] for a few weeks due to a recent hospitalization for UTI and severe sepsis. Patient states she had been working with the therapist at the [facility] and had been feeling better. She states she wanted to get out of bed but she did not ask for any help from the [facility] staff and during the process of getting up she fell. Patient states she had some pain in her head and on her chest wall after falling but no other complaints Hospital Course Hospital Course: The patient had a cervical spine CT which showed chronic wedge compression changes of T1 and T2 but nothing acute. She had a head CT showing some sinusitis but nothing acute. She had an abdominal pelvic CT showing nothing acute. She had a chest CT showing a left upper lobe groundglass opacity with peripheral consolidation related to a pneumonitis/pneumonia. She also had chronic pulmonary fibrosis which had progressed since the previous exam as well as chronic wedging of T1 and T2. She was started on IV fluids to treat her acute renal failure and antibiotics were started due to a possible pneumonia. The patient did not rest well and wanted to go home. She pulled out her IVs. Her renal function continued to decline. Dr. Hall spoke with the patient's daughter and she did not want to seek dialysis treatment and wanted supportive care only. The patient did begin resting better and was able to eat. Her renal function stayed about the same. The patient continued to want to go home. Dr. Hall felt hospice care seems most appropriate. Her blood cultures returned showing no growth. She was stable to be discharged home under the care of hospice. Objective Vital signs: Temp Pulse Resp BP Pulse Ox 98.4 F 93 H 18 143/62 H 97 08/29/19 07:48 08/29/19 13:32 08/29/19 07:48 08/29/19 07:48 08/29/19 07:48 Narrative: - Constitutional no acute distress (hard of hearing) - *Routine HEENT Exam Head: Present: normocephalic (on minimal posterior scalp edema) Eye: Present: EOMI, PERRL ENT: Present: mucous membranes moist - *Routine Neck Exam Present: supple. Absent: lymphadenopathy - *Routine Respiratory Exam Present: CTA bilaterally - *Routine Cardiovascular Exam Present: RRR - *Routine Abdominal Exam Present: soft, normoactive bowel sounds. Absent: tenderness - *Routine Extremities Exam Absent: cyanosis, clubbing, edema - *Routine Skin Exam Present: warm. Absent: rash - *Routine Neurological Exam Present: alert, oriented X3 Results Labs on day of discharge: Preliminary micro results at discharge 08/27/19 00:15 Blood Culture - Preliminary Blood NO GROWTH AFTER 48 HOURS 08/27/19 00:15 Blood Culture - Preliminary Blood NO GROWTH AFTER 48 HOURS DS: Diagnosis - Discharge Diagnosis (1) Fall at [facility] Status: Acute (2) Closed head injury Status: Acute (3) Acute renal failure (ARF) Status: Acute (4) CKD (chronic kidney disease) stage 4, GFR 15-29 ml/min Status: Acute (5) Hyperkalemia Status: Acute (6) Acute on chronic renal failure Status: Acute (7) Type 2 diabetes mellitus Status: Acute (8) Hypertension Status: Acute (9) Hyperlipidemia Status: Acute (10) Presbycusis Status: Acute (11) History of uterine cancer Status: Acute (12) History of lung cancer Status: Acute (13) History of breast cancer Status: Acute (14) Diabetic neuropathy Status: Acute (15) Anemia Status: Acute Discharge Plan - Patient Discharge Instructions ACTIVITY: Continue current activity DIET: continue same diet Patient Instructions: DI for Kidney Failure, DI for Dehydration -- Adult, DI for Hyperkalemia, How to Prevent Falls, DI for Malnutrition - Older Adults, DI for Altered Mental Status - Follow up Plan Follow up with: Ehsan Hall MD [Primary Care Provider] - (As needed) Disposition: Hospice - Home Home Medications: Home Medications Medication Instructions Recorded Confirmed Type Ferrous Sulfate 325 mg PO DAILY 08/05/19 08/26/19 History Mv-Min/Iron/Folic/Calcium/Vitk 1 each PO DAILY 08/05/19 08/26/19 History [Women's Multivitamin Tablet] Omeprazole 20 mg PO DAILY 08/05/19 08/26/19 History Vitamin B Complex [B-50 Complex] 1 each PO DAILY 08/05/19 08/26/19 History Acetaminophen [Pain Reliever] 100 mg PO Q6HP PRN 08/27/19 08/27/19 History Metoprolol Succinate 50 mg PO DAILY 08/27/19 08/27/19 History Simethicone [Gas Relief 80] 80 mg PO Q4HP PRN 08/27/19 08/27/19 History Gabapentin [Gabapentin 300mg Cap] 300 mg PO BID #60 cap 08/29/19 Rx Ipratropium/Albuterol Sulfate 3 ml IH Q6HP PRN #30 neb 08/29/19 Rx [Duoneb 3mL neb] Prescriptions/Medication Reconciliation: Continued Simethicone [Gas Relief 80] 80 mg PO Q4HP PRN PRN Reason: Gas Pain And Discomfort Omeprazole 20 mg PO DAILY Ferrous Sulfate 325 mg PO DAILY Vitamin B Complex [B-50 Complex] 1 each PO DAILY Mv-Min/Iron/Folic/Calcium/Vitk [Women's Multivitamin Tablet] 1 each PO DAILY Metoprolol Succinate 50 mg PO DAILY Acetaminophen [Pain Reliever] 100 mg PO Q6HP PRN PRN Reason: PAIN/FEVER Gabapentin [Gabapentin 300mg Cap] 300 mg PO BID #60 cap Changed Ipratropium/Albuterol Sulfate [Duoneb 3mL neb] 3 ml IH Q6HP PRN #30 neb PRN Reason: Shortness Of Breath Or Wheezing Discontinued Pravastatin Sodium [Pravachol 40mg Tablet] 40 mg PO HS Losartan Potassium 100 mg PO DAILY Metformin HCl 500 mg PO DAILY #30 tab hydroCHLOROthiazide [Hydrochlorothiazide] 12.5 mg PO DAILY Fenofibrate 160 mg PO DAILY - Problem Reconciliation Problems Reviewed?: Yes
== END 2019-08-29 13:58 | disposition hospice, home (50) | DRG 914 ==
LOC: 2ND 16:55 → ER 16:55 → OBSVTOIN 18:56 → 2ND 18:56
PROVIDERS: ADMIT Family Medicine; ATTEND Family Medicine
CPT/HCPCS: 36415; 70450; 71250; 72125; 74176; 80048; 80053; 81001; 82962; 83605; 84484; 85025; 87040; 93005; 94640; 94761; 99284; J0456